=== PATIENT | female | born 1980 | race Caucasian/White ===

== ENCOUNTER 2017-07-04 14:22 | Emergency (ER) | payer SELFPAY ==
[~2017-07-04] VITALS: Ht 177.8 cm; Wt 113.4 kg
[~2017-07-04 14:22] MED LIST: BACTRIM DS 8001 TA1 PO; CARBAMAZEPINE400 MG PO; CIPRO 500MG TA500 MG PO; DOXYCYCLINE HY100 M3 PO; EFFEXOR XR150 MG PO; FUROSEMIDE40 MG PO; GABAPENTIN300 M1 PO; INDOCIN25 MG PO; KEFLEX500 M1 PO; LEVOTHYROXIN0.075 MG PO; MELOXICAM15 MG PO; PERCOCET 5/3251 EACH PO; PROZAC20 MG PO; PYRIDIUM 200MG200 MG PO; SMZ-TMP 800 MG-1 TAB PO; TESSALON PERLE100 MG PO; VENLAFAXINE HCL75 M1 PO; VIBRAMYCIN 100100 MG PO; VOLTAREN75 MG PO
--- OUTSIDE RECORDS SUMMARY | 2017-07-04 14:36 | External Medical Summary Rpt | CCD ---
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 0.0-0.6 complet Granulo 017 ed cytes 07:08 NFr Bld Basophi 0.1 % 0.0-1.0 complet ls NFr 017 ed Bld 07:08 Auto Eosinop 1.1 % 0.0-3.0 complet hil NFr 017 ed Bld 07:08 Auto Monocyt 5.6 % 0.0-12. complet es NFr 017 0 ed Bld 07:08 Auto Lymphoc 31.8 % 24.0-44 complet ytes 017 .0 ed NFr Bld 07:08 Auto Neutrop 61.3 % 41.0-71 complet hils 017 .0 ed NFr Bld 07:08 Auto Platele 149 150-450 complet t # Bld 017 10*3/mm ed Auto 07:08 3 PMV Bld 10.1 fL 6.0-12. complet Auto 017 0 ed 07:08 RDW RBC 47.1 fl 37.0-54 complet Auto 017 .0 ed 07:08 RDW RBC 13.5 % 11.3-14 complet 017 .5 ed Auto-Rt 07:08 o MCHC 33.1 32.0-36 complet RBC 017 g/dL .0 ed Auto-mC 07:08 nc MCH RBC 31.9 pg 27.0-31 complet Qn 017 .0 ed Auto 07:08 MCV RBC 96.3 fL 80.0-99 complet Auto 017 .0 ed 07:08 Hct VFr 30.8 % 34.5-44 complet Bld 017 .0 ed Auto 07:08 Hgb 10.2 11.5-15 complet Bld-mCn 017 g/dL .5 ed c 07:08 RBC # 11-11-2 3.20 3.89-5. complet Bld 017 10*6/mm 14 ed Auto 07:08 3 WBC 11-11-2 8.08 3.50-10 complet nRBC 017 10*3/mm .80 ed cor # 07:08 3 Bld Drugs Ur Scn (11-10-2016 03:22) Comment: Cutoff For Drugs Screened: Comment: Comment: Amphetamines 500 ng/ml Comment: Barbiturates 200 ng/ml Comment: Benzodiazepines 150 ng/ml Comment: Cocaine 150 ng/ml Comment: Methadone 200 ng/ml Comment: Opiates 100 ng/ml Comment: Phencyclidine 25 ng/ml Comment: THC 50 ng/ml Comment: Methamphetamine 500 ng/ml Comment: Tricyclic Antidepressants 300 ng/ml Comment: Oxycodone 100 ng/ml Comment: Propoxyphene 300 ng/ml Comment: Buprenorphine 10 ng/ml Comment: Comment: The normal value for all drugs tested is negative. This report includes unconfirmed screening results, with the cutoff values listed, to be used for medical treatment purposes only. Unconfirmed results must not be used for non-medical purposes such Bupreno [id number] Negativ complet rphine 017 09 e ed SerPl-m 03:22 Negativ Cnc e SCT Propoxy [id number] Negativ complet ph Ur 017 09 e ed Ql 03:22 Negativ e SCT Oxycodo [id number] Negativ complet ne Ur 017 09 e ed Ql Scn 03:22 Negativ e SCT Barbitu [id number] Negativ complet rates 017 09 e ed Ur Ql 03:22 Negativ Scn e SCT Methado [id number] Negativ complet ne Ur 017 09 e ed Ql Scn 03:22 Negativ e SCT Tricycl 5958633 Negativ complet ics Ur 017 09 e ed Ql Scn 03:22 Negativ e SCT Benzodi 1837153 Negativ complet az Ur 017 09 e ed Ql Scn 03:22 Negativ e SCT Amphet+ [id number] Negativ complet Methamp 017 09 e ed het Ur 03:22 Negativ Ql e SCT Opiates 7268122 Negativ complet Ur Ql 017 09 e ed 03:22 Negativ e SCT Ampheta 4905922 Negativ complet mines 017 09 e ed Ur Ql 03:22 Negativ e SCT Cocaine 4929242 Negativ complet Ur Ql 017 09 e ed 03:22 Negativ e SCT PCP Ur 4168666 Negativ complet Ql Scn 017 09 e ed 03:22 Negativ e SCT Cannabi 2797738 Negativ complet noids 017 09 e ed SerPl 03:22 Negativ Ql e SCT CBC (hemogram) Bld Auto (11-09-2016 13:09) Platele 231 150-450 complet t # Bld 017 10*3/mm ed Auto 13:09 3 PMV Bld 10.9 fL 6.0-12. complet Auto 017 0 ed 13:09 RDW RBC 46.6 fl 37.0-54 complet Auto 017 .0 ed 13:09 RDW RBC 2 13.6 % 11.3-14 complet 017 .5 ed Auto-Rt 13:09 o MCHC 34.8 32.0-36 complet RBC 017 g/dL .0 ed Auto-mC 13:09 nc MCH RBC 2 33.1 pg 27.0-31 complet Qn 017 .0 ed Auto 13:09 MCV RBC 95.1 fL 80.0-99 complet Auto 017 .0 ed 13:09 Hct VFr 34.8 % 34.5-44 complet Bld 017 .0 ed Auto 13:09 Hgb 11-09-2 12.1 11.5-15 complet Bld-mCn 017 g/dL .5 ed c 13:09 RBC # 11-09-2 3.66 3.89-5. complet Bld 017 10*6/mm 14 ed Auto 13:09 3 WBC 11-09-2 7.69 3.50-10 complet nRBC 017 10*3/mm .80 ed cor # 13:09 3 Bld Hgb F Bld Ql Kleih Betke (11-04-2016 13:25) Hgb F [id number] NO complet Bld Ql 017 00 Not ed Kleih 13:25 detecte CELLS Betke d SCT SEEN CBC (hemogram) Bld Auto (11-04-2016 13:25) Platele 199 150-450 complet t # Bld 017 10*3/mm ed Auto 13:25 3 PMV Bld 9.9 fL 6.0-12. complet Auto 017 0 ed 13:25 RDW RBC 11-04-2 46.1 fl 37.0-54 complet Auto 017 .0 ed 13:25 RDW RBC 11-04-2 13.4 % 11.3-14 complet 017 .5 ed Auto-Rt 13:25 o MCHC 11-04-2 34.8 32.0-36 complet RBC 017 g/dL .0 ed Auto-mC 13:25 nc MCH RBC 11-04-2 33.0 pg 27.0-31 complet Qn 017 .0 ed Auto 13:25 MCV RBC 11-04-2 94.9 fL 80.0-99 complet Auto 017 .0 ed 13:25 Hct VFr 11-04-2 37.1 % 34.5-44 complet Bld 017 .0 ed Auto 13:25 Hgb 11-04-2 12.9 11.5-15 complet Bld-mCn 017 g/dL .5 ed c 13:25 RBC # 11-04-2 3.91 3.89-5. complet Bld 017 10*6/mm 14 ed Auto 13:25 3 WBC 11-04-2 8.47 3.50-10 complet nRBC 017 10*3/mm .80 ed cor # 13:25 3 Bld Glucose 1h p 50 g Glc PO SerPl-mCnc (09-16-2016 09:57) Glucose 118 65-199 complet 1h p 017 mg/dL ed 100 g 09:57 Glc PO SerPl-m Cnc CBC (hemogram) Bld Auto (09-16-2016 09:57) Platele 214 150-450 complet t # Bld 017 10*3/mm ed Auto 09:57 3 PMV Bld 2 9.9 fL 6.0-12. complet Auto 017 0 ed 09:57 RDW RBC 09-16-2 46.9 fl 37.0-54 complet Auto 017 .0 ed 09:57 RDW RBC 09-16-2 13.6 % 11.3-14 complet 017 .5 ed Auto-Rt 09:57 o MCHC 09-16-2 35.3 32.0-36 complet RBC 017 g/dL .0 ed Auto-mC 09:57 nc MCH RBC 2 33.2 pg 27.0-31 complet Qn 017 .0 ed Auto 09:57 MCV RBC 01-04-2 94.2 fL 80.0-99 complet Auto 017 .0 ed 09:57 Hct VFr 35.7 % 34.5-44 complet Bld 017 .0 ed Auto 09:57 Hgb 09-16-2 12.6 11.5-15 complet Bld-mCn 017 g/dL .5 ed c 09:57 RBC # 04-2 3.79 3.89-5. complet Bld 017 10*6/mm 14 ed Auto 09:57 3 WBC 2 7.57 3.50-10 complet nRBC 017 10*3/mm .80 ed cor # 09:57 3 Bld UA Dipstick Pnl Ur (06-26-2016 19:42) Comment: Urine microscopic not indicated. Urobili 0.2 0.2 complet nogen 016 E.U./dL E.U./dL ed Ur Ql 19:42 , 1.0 Strip E.U./dL Nitrite [id number] Negativ complet Ur Ql 016 09 e ed Strip 19:42 Negativ e SCT Leukocy 0368731 Negativ complet te 016 09 e ed esteras 19:42 Negativ e Ur Ql e SCT Strip.a uto Prot Ur 9201592 Negativ complet Ql 016 09 e ed Strip 19:42 Negativ e SCT Hgb Ur 5780023 Negativ complet Ql 016 09 e ed Strip.a 19:42 Negativ uto e SCT Bilirub 4837261 Negativ complet Ur Ql 016 09 e ed Strip 19:42 Negativ e SCT Ketones 2992378 Negativ complet Ur Ql 016 06 e ed Strip 19:42 Trace SCT Glucose 7679772 Negativ complet Ur 016 09 e ed Strip-m 19:42 Negativ Cnc e SCT Sp Gr 1.026 1.001-1 complet Ur 016 .030 ed Strip 19:42 pH Ur 5.5 5.0-8.0 complet Strip.a 016 ed uto 19:42 Clarity [id number] Clear complet Ur 016 01 ed 19:42 Clear SCT Color 14-2 1977649 Yellow, complet Ur 016 09 Straw ed 19:42 Yellow color SCT CHLAMYDIA AND GONORRHEA TESTING (08-28-2014 15:00) Chlamyd NEGATIV complet ia 014 E ed trachom 15:00 atis rRNA [Presen ce] in Unspeci fied specime n by Probe & target amplifi cation method Neisser NEGATIV complet ia 014 E ed gonorrh 15:00 oeae rRNA [Presen ce] in Unspeci fied specime n by Probe & target amplifi cation method CHLAMYDIA AND GONORRHEA TESTING (08-28-2014 15:00) COLLECT A. complet OR 014 SOFYA, ed 15:00 RN ETHNICI WHITE, complet TY 014 NON-HIS ed 15:00 PANIC KIT complet EXPIRAT 014 5 ed ION 15:00 DATE SYMPTOM NO complet S 014 ed 15:00 REASON REVISIT complet FOR 014 /ANNUAL ed REQUEST 15:00 FAMILY PLANNIN G VISIT SPECIME FEMALE complet N 014 ENDOCER ed SOURCE 15:00 VICAL PREGNAN NO complet T 014 ed 15:00 CHART 267-99- complet NUMBER 014 7513 ed 15:00 Chlamyd Pending complet ia 014 ed trachom 15:00 atis rRNA [Presen ce] in Unspeci fied specime n by Probe & target amplifi cation method Neisser Pending complet ia 014 ed gonorrh 15:00 oeae rRNA [Presen ce] in Unspeci fied specime n by Probe & target amplifi cation method CHLAMYDIA AND GONORRHEA TESTING (10-13-2011 11:33) Chlamyd NEGATIV complet ia 012 E ed trachom 11:33 atis rRNA [Presen ce] in Unspeci fied specime n by Probe & target amplifi cation method Neisser NEGATIV complet ia 012 E ed gonorrh 11:33 oeae rRNA [Presen ce] in Unspeci fied specime n by Probe & target amplifi cation method CHLAMYDIA AND GONORRHEA TESTING (10-13-2011 11:33) COLLECT NA complet OR 012 ed 11:33 ETHNICI WHITE, complet TY 012 NON-HIS ed 11:33 PANIC KIT complet EXPIRAT 012 2 ed ION 11:33 DATE SYMPTOM NO complet S 012 ed 11:33 REASON REVISIT complet FOR 012 /ANNUAL ed REQUEST 11:33 FAMILY PLANNIN G VISIT SPECIME URINE complet N 012 ed SOURCE 11:33 PREGNAN NO complet T 012 ed 11:33 CHART NA complet NUMBER 012 ed 11:33 Chlamyd Pending complet ia 012 ed trachom 11:33 atis rRNA [Presen ce] in Unspeci fied specime n by Probe & target amplifi cation method Neisser Pending complet ia 012 ed gonorrh 11:33 oeae rRNA [Presen ce] in Unspeci fied specime n by Probe & target amplifi cation method Procedures Procedure DOS Code Location Performer Comment IADNA [facility] 7 [facility] DEPT HLTH DEPT GONORRHOE ADALBERTO ADALBERTO AE AMPLIFIED PROBE TQ IADNA 70134 [facility] CHLAMYDIA 7 [facility] DEPT HLTH DEPT TRACHOMAT ADALBERTO ADALBERTO IS AMPLIFIED PROBE TQ URINE 37568 [facility] 7 [facility] TEST TH DEPT HLTH DEPT VISUAL ADALBERTO ADALBERTO COLOR CMPRSN METHS BREAST E0603 [facility] PUMP 7 INC INC ELECTRIC ANY TYPE NEURAXIAL 68907 [facility] WHITE III LABOR 7 ANESTHESI ANALG/ANE A PSC S PLND VAGINAL DELIVERY 80587 [facility] NONSTRESS 7 [facility]OMENS TEST [facility] OBSERVATI 17178 [facility] ON CARE 7 WOMENS DISCHARGE [facility] [place] [address] [facility] BIOPHYSIC 7 HEALTH AL MEDICAL PROFILE GROUP W/O NON-STRES S TESTING IADNA 43209 MEDICAL MEDICAL STREPTOCO 7 DIAGNOSTI DIAGNOSTI CCUS [facility] C LAB LLC GROUP B AMPLIFIED PROBE TQ HGB/RBCS 98139 [facility] ANABAPTISM 7 [facility] NAL HEMRRG DIFRNTL LYSIS INITIAL 32173 [facility] OBSERVATI 7 [facility] ON [facility] CARE/DAY PLLC 50 MINUTES HOSPITAL G0378 [facility] OBSERVATI 7 HEALTH HEALTH ON [facility] SERVICE PER HOUR BLOOD 27547 [facility] TYPING 7 HEALTH HEALTH SEROLOGIC [facility] RH (D) ANTIBODY 76983 [facility] SCREEN 7 HEALTH HEALTH RBC EACH [facility] SERUM TECHNIQUE BLOOD 91032 [facility] TYPING 7 HEALTH HEALTH SEROLOGIC [facility] ABO 75860 [facility] NONSTRESS 7 [facility] US PREG 70046 [facility] HIETT UTERUS 7 HEALTH REAL TIME MEDICAL F/U GROUP TRNSABDL PER FETUS 98830 [facility] NONSTRESS 7 [facility] 81013 [facility] NONSTRESS 7 [facility] US PREG 78778 [facility] UTERUS 7 WOMENS REAL TIME HEALTH F/U PLLC TRNSABDL PER FETUS ANTIBODY 23368 [facility] SCREEN 7 HEALTH HEALTH RBC EACH [facility] SERUM TECHNIQUE COLLECTIO 72512 [facility] N VENOUS 7 HEALTH HEALTH BLOOD [facility] VENIPUNCT URE GLUCOSE 72061 [facility] POST 7 HEALTH HEALTH GLUCOSE [facility] DOSE US PREG 34595 [facility] UTERUS 6 HEALTH HEALTH REAL TIME [facility] F/U TRNSABDL PER FETUS US PREG 36205 [facility] HIETT UTERUS 6 HEALTH W/DETAIL MEDICAL GROUP SAVANAH 1ST GESTATION INITIAL 16368 [facility] HIGH JR OBSERVATI 6 HEALTH CUR ON MEDICAL CARE/DAY GROUP 30 MINUTES URNLS DIP 01998 [facility] 6 [facility] STICK/TAB INTERNAL LET RGNT MED NON-[place] W/[place] [address] [facility] JEANETTE [address] [facility] UTERUS 14 MEDICAL WK GROUP TRANSABDL GESTAT CYTP C/V 93861 [facility], PICKLESIM AUTO THIN 6 LLC ER JR MANUEL LYR PREPJ SCR MNL RESCR PHYS US PREG 02216 [facility] BRAULIO UTERUS [address] [facility] BAR REAL TIME MEDICAL W/[place] [address] [facility] HEPATITIS 6 [facility] B [facility] SURFACE ANTIGEN IADNA 01110 MEDICAL MEDICAL MATTHEW 6 DIAGNOSTI DIAGNOSTI SPECIES [facility] C LAB LLC AMPLIFIED PROBE TQ IADNA 97875 MEDICAL MEDICAL GARDNEREL 6 DIAGNOSTI DIAGNOSTI LA C LAB LLC C LAB LLC VAGINALIS AMPLIFIED PROBE TQ HEMOGLOBI 92734 [facility] ANAB[facility]ISM N [address] [facility] HEALTH GLYCOSYLA [facility] JOSE MANUEL A1C BLOOD 80141 [facility] COUNT 6 [facility] COMPLETE [facility] AUTO&AUTO DIFRNTL WBC IADNA 92906 MEDICAL MEDICAL TRICHOMON 6 DIAGNOSTI DIAGNOSTI C LAB LLC C LAB LLC VAGINALIS AMPLIFIED PROBE TECH ANTIBODY 71174 [facility] RUBELLA [address] [facility] HEALTH [facility] URNLS DIP 39333 [facility] ANABAPTISM 6 [facility] STICK/TAB [facility] LET RGNT AUTO W/O MICROSCOP Y COLLECTIO 64968 [facility] A[facility]ISM N VENOUS 6 [facility] BLOOD [facility] VENIPUNCT URE IADNA NOS 23363 MEDICAL MEDICAL 6 DIAGNOSTI DIAGNOSTI AMPLIFIED [facility] LAB [facility] PROBE TQ EACH ORGANISM SYPHILIS 29657 [facility] TEST [address] [place] [address] NON-TREPO [facility] NEMAL ANTIBODY QUAL IADNA 07980 MEDICAL MEDICAL NEISSERIA 6 DIAGNOSTI DIAGNOSTI C [facility] C LAB LLC GONORRHOE AE AMPLIFIED PROBE TQ COMPREHEN 42718 [facility] A[facility] SIVE 6 [facility] METABOLIC [facility] PANEL DRUG TEST G0478 [facility] ANABAPTISM [address] [place] [address] PRESUMP;R [facility] EAD BY [place]STRUM[place] [address] [facility] THYROID [address] [place] [address] STIMULATI [facility] NG HORMONE TSH IADNA 39886 MEDICAL MEDICAL CHLAMYDIA 6 DIAGNOSTI DIAGNOSTI C LAB LLC C LAB LLC TRACHOMAT IS AMPLIFIED PROBE TQ IADNA 78764 [facility], PICKLESAragon Surgical HUMAN 6 LLC ER JR MANUEL PAPILLOMA VIRUS HIGH-RISK TYPES INF AGT G0432 [facility] [address] [place] [address] EIA TECH [facility] HIV-1&/HI V-2 SCR DRUG TEST G0480 [facility] [address] [place] [address] DR ID [facility] METH P DAY 1-[place] [address] MICHELE BAUTISTA THYROID 6 [facility] STIMULATI INC INC NG HORMONE TSH COMPREHEN 67660 MICHELE BAUTISTA SIVE 6 [facility] METABOLIC INC INC PANEL COLLECTIO 84131 MICHELE BAUTISTA N VENOUS 6 [facility] BLOOD INC INC VENIPUNCT URE BLOOD 79931 MICHELE BAUTISTA COUNT 6 [facility] COMPLETE INC INC AUTO&AUTO DIFRNTL WBC URINE 73723 [facility]TH DEPT HLTH DEPT VISUAL ADALBERTO [place] [address] LAB [facility] PROGESTER 6 [facility]INGS HOLDINGS COMPREHEN 95639 MICHELE BAUTISTA SIVE 6 [facility] METABOLIC INC INC PANEL UNCLASSIF J3490 MICHELE BAUTISTA IED DRUGS 6 [facility] INC INC CULTURE 98045 MICHELE BAUTISTA BCT 6 [facility] ISOL&PRSM INC INC PTV ID ISOLATE EA URINE CULTURE 18250 MICHELE BAUTISTA BACTERIAL 6 [facility] INC [place] [address] MICHELE BAUTISTA ABDOMEN & 6 [facility] PELVIS INC INC W/O CONTRAST MATERIAL BLOOD 61418 MICHELE BAUTISTA COUNT 6 [facility] COMPLETE INC INC AUTO&AUTO DIFRNTL WBC SUSCEPTIB 98826 MICHELE BAUTISTA LTY STDY 6 [facility] ANTIMICRB INC INC IAL MICRO/AGA R DILUTJ URNLS DIP 30588 MICHELE BAUTISTA 6 [facility] STICK/TAB INC INC LET REAGENT AUTO MICROSCOP Y GONADOTRO 11397 MICHELE BAUTISTA PIN 6 [facility] CHORIONIC INC INC QUALITATI VE THER 43596 MICHELE BAUTISTA PROPH/DX 6 [facility] NJX IV INC INC PUSH SINGLE/1S T SBST/DRUG URINE 82747 MICHELE BAUTISTA 6 [facility] TEST INC INC VISUAL COLOR CMPRSN METHS CYTP 02948 [facility] CERVICAL/ 6 LLC MELISSA VAGINAL REQ INTERP PHYSICIAN IADNA 47337 [facility] HUMAN 6 LLC MELISSA PAPILLOMA VIRUS HIGH-RISK TYPES CYTP 75773 [facility] CERV/VAG 6 LLC MELISSA AUTO THIN LAYER PREP MNL SCREEN UNCLASSIF J3490 MICHELE BAUTISTA IED DRUGS 5 [facility] INC INC RADIOLOGI 62607 MICHELE BAUTISTA C 5 [facility] EXAMINATI INC INC ON CHEST SINGLE VIEW FRONTAL INCISION 08717 MICHELE BAUTISTA & 5 [facility] DRAINAGE INC INC ABSCESS COMPLICAT ED/MULTIP LE RADIOLOGI 69068 MICHELE BAUTISTA C EXAM 5 [facility] CHEST 2 INC INC VIEWS FRONTAL&L ATERAL COLPOSCOP 43266 YESI ELSA YESI ELSA Y CERVIX 5 [facility] NT VAGINA W/[place] [address] [facility], CORY PAT SURG 5 LLC PATHOLOGY GROSS&[place] [address] [facility], WOO SURG 5 LLC MELISSA PATHOLOGY GROSS&MARCELLO ROSCOPIC EXAM ENDOCERVI 56145 YESI ELSA YESI ELSA RHONA 5 CURETTAGE W/DILATIO N & CURETTAGE CYTP C/V 50842 [facility], WOO AUTO THIN 5 LLC MELISSA LYR PREPJ SCR MNL RESCR PHYS CYTP 50799 [facility], WOO CERVICAL/ 5 LLC MELISSA VAGINAL REQ INTERP PHYSICIAN CONTRACEP J7303 [facility] T SUPPLY [address] [facility] HL[facility] DEPT HLTH DEPT CONTAININ ADALBERTO ADALBERTO G VAG RING EA THERAPEUT 84894 MICHELE BAUTISTA IC 5 [facility] INJECTION INC INC IV PUSH EACH NEW DRUG CULTURE 46981 COMBINED COMBINED BACTERIAL 5 PHYSICIAN PHYSICIAN S LA Yoni LA QU[place]TTAT[place] [address] [facility], BEATRICE SURG 5 [facility] PATHOLOGY GROSS&MARCELLO ROSCOPIC EXAM [place] V 91023 [facility], BEATRICE SURG 5 [facility] PATHOLOGY GROSS&MARCELLO ROSCOPIC EXAM COLPOSCOP 47667 YESI ELSA YESI ELSA Y CERVIX 5 VAG ELTRD CONIZATIO N CERVIX US SOFT 34896 MICHELE BAUTISTA TISSUE 5 [facility] HEAD & INC [place] [address] [place] HEAD/BRAI 5 MEDICAL GAVINO N W/O IMAGING CONTRAST ASS MATERIAL COMPREHEN 49317 MICHELE BAUTISTA SIVE 5 [facility] METABOLIC INC INC PANEL DRUG 19322 MICHELE BAUTISTA ASSAY 5 [facility] CARBAMAZE INC INC PINE TOTAL BLOOD 73247 MICHELE BAUTISTA COUNT 5 [facility] COMPLETE INC INC AUTO&AUTO DIFRNTL WBC URNLS DIP 23562 MICHELE BAUTISTA 5 [facility] STICK/TAB INC INC LET REAGENT AUTO MICROSCOP Y URINE 21908 MICHELE BAUTISTA 5 [facility] TEST INC INC VISUAL COLOR CMPRSN METHS DRUG 61798 MICHELE BAUTISTA ASSAY 5 [facility] CARBAMAZE INC INC PINE TOTAL BLOOD 33225 MICHELE KELLEYON COUNT 5 [facility] COMPLETE INC INC AUTO&[place] [address] MIC[facility] THYROID 5 [facility] STIMULATI INC INC NG HORMONE TSH COLLECTIO 35190 MICHELE BAUTISTA N VENOUS 5 [facility] BLOOD INC INC VENIPUNCT URE COMPREHEN 98434 MICHELE BAUTISTA SIVE 5 [facility] [place] [address] P&C LABSCORY PAT SURG 5 LLC PATHOLOGY GROSS&MARCELLO ROSCOPIC EXAM COLPOSCOP 97316 YESI ELSA YESI ELSA Y CERVIX 5 UPPR/ADJC NT VAGINA W/CERVIX BX IADNA 59875 [facility] GONORRHOE ADALBERTO ADALBERTO AE AMPLIFIED PROBE TQ CYTP 22815 P&[facility] LABSTITUS CERV/VAG 4 LLC AUTO THIN LAYER PREP MNL SCREEN IADNA 57392 [facility] CHLAMYDIA [address] [facility] DE[facility] TRACHOMAT ADALBERTO ADALBERTO IS AMPLIFIED PROBE TQ IADNA 48137 P&[facility] LABSTITUS PAPILLOMA 4 LLC VIRUS HUMAN AMPLIFIED PROBE TQ CYTP 78129 P&[facility] LABSTITUS CERVICAL/ 4 LLC VAGINAL REQ INTERP PHYSICIAN CONTRACEP J7303 [facility] T SUPPLY 4 [facility] DE[facility] CONTAININ ADALBERTO ADALBERTO G VAG RING EA URINE [address] [facility] [address] [facility] TEST [facility] VISUAL ADALBERTO ADALBERTO COLOR CMPRSN METHS CONTRACEP A4267 [facility] TIVE [facility] CONDOM ADALBERTO ADALBERTO MALE EACH CONTRACEP S4993 [facility] TIVE [address] [facility] ADALBERTO ADALBERTO CONTROL CONTRACEP J7303 [facility] T SUPPLY [address] [facility] DEPT CONTAININ ADALBERTO ADALBERTO G VAG RING EA GROUND A0425 [facility] MILEAGE 4 AMBULANCE AMBULANCE PER SERVICE SERVICE STATUTE MILE AMBULANCE A0429 [facility] SERVICE 4 AMBULANCE AMBULANCE BLS SERVICE SERVICE EMERGENCY TRANSPORT BLOOD 34827 MIC[facility]LE MICHELE COUNT 4 [facility] COMPLETE INC INC AUTO&[place] [address] MICHELE BAUTISTA MAXILLOFA 4 [facility] CIAL W/O INC INC CONTRAST MATERIAL COMPREHEN 60392 MICHELE BAUTISTA SIVE 4 [facility] METABOLIC INC INC PANEL RADEX 86087 MICHELE BAUTISTA ELBOW 4 [facility] COMPLETE INC INC MINIMUM 3 VIEWS GONADOTRO 75370 MICHELE BAUTISTA PIN 4 [facility] CHORIONIC INC INC QUALITATI VE RADEX 67858 MICHELE BAUTISTA ELBOW 4 [facility] COMPLETE INC INC MINIMUM [address] UPPER 57617 MICHELE BAUTISTA EXTREMITY 4 [facility] W/O INC INC CONTRAST MATERIAL MRI ANY 43510 DELROY DELROY JT UPPER 4 GAVINO GAVINO EXTREMITY W/[place] [address] PETTEY PETTEY RADIAL 4 JAM JAM HEAD/NECK FX W/O MANIPULAT ION RADEX 66801 MICHELE BAUTISTA ELBOW 4 [facility] COMPLETE INC INC MINIMUM 3 VIEWS RADEX 15217 MICHELE BAUTISTA HAND 4 [facility] MINIMUM 3 INC INC VIEWS RADEX 30621 MICHELE BAUTISTA HUMERUS 4 [facility] MINIMUM 2 INC INC VIEWS RADEX 71877 MICHELE BAUTISTA FOREARM 2 4 [facility] VIEWS INC INC INJECTION J3301 VINCE SPIVEYSON 4 RADHA RADHA TRIAMCINO LONE ACETONIDE NOS 10 MG THERAPEUT 35805 VINCE CLARKE IC 4 RADHA RADHA PROPHYLAC TIC/DX INJECTION SUBQ/IM URINE 55876 MICHELE BAUTISTA 4 [facility] TEST INC INC VISUAL COLOR CMPRSN METHS COMPREHEN 05962 MICHELE BAUTISTA SIVE 4 [facility] METABOLIC INC INC PANEL CULTURE 69106 MICHELE BAUTISTA BACTERIAL 4 [facility] INC [place] [address] DELROY DELROY ABDOMEN & 4 GAVINO GAVINO PELVIS W/O CONTRAST MATERIAL BLOOD 50163 MICHELE BAUTISTA COUNT 4 [facility] COMPLETE INC INC AUTO&AUTO DIFRNTL WBC URNLS DIP 34117 MICHELE MICHELE 4 [facility] STICK/TAB INC INC LET REAGENT AUTO MICROSCOP Y CULTURE 49346 COMBINED COMBINED BACTERIAL 4 PHYSICIAN PHYSICIAN Yoni UREÑA QUANTTATI VE COLONY COUNT URINE URNLS DIP 94160 LUNA LUNA 4 MOSHE MOSHE STICK/TAB LET RGNT NON-AUTO W/O MICRSCP COMPREHEN 71962 MICHELE BAUTISTA SIVE 4 [facility] [place] [address] MICHELE BAUTISTA THYROID 4 [facility] STIMULATI INC INC NG HORMONE TSH DRUG 87058 MICHELE BAUTISTA ASSAY 4 [facility] CARBAMAZE INC INC PINE TOTAL BLOOD 23479 MICHELE BAUTISTA COUNT 4 [facility] COMPLETE INC INC AUTO&AUTO DIFRNTL WBC LEVONORGE J7302 [facility] NUR, STREL-RLS 0 [facility] E [facility]IN[facility] OF INTRAUTER N [place] CNTRACPT PLLC 52 MG URINE 72246 W[facility]S NUR, 0 [facility] J TEST CLINIC OF VISUAL COLOR [place] CMPRSN PLLC METHS INSERTION 37505 WOMEN'S NUR, 0 [facility] J INTRAUTER CLINIC OF INE DEVICE [place] IUD PLLC CYTP C/V 42431 PATHOLOGY PATHOLOGY AUTO THIN 0 & & LYR CYTOLOGY CYTOLOGY PREPJ SCR LAB LAB MNL RESCR [facility] [address] [facility] NOREEN ADLER JR INTERNAL SMITH Landa [facility] MED T 30 MIN/< ADMINISTR 9948 MICHELE BAUTISTA ATION OF 0 [facility] MEASLES-M INC INC UMPS-RUBE LLA VACCINE SBSQ 81404 [facility] 0 PHYSICIAN RADHA CARE/DAY GROUP 35 PCC MINUTES SUBQ 09196 [facility] 0 VITOR BERN[place], CARE PER INTERNAL SMITH Landa DAY E/M MED NORMAL 1ST 27118 [facility]/BREE 0 MAYUR ADLER JR INTERNAL [facility] MED CARE PER DAY NML NB OTHER 7359 MICHELE BAUTISTA MANUALLY 0 [facility] ASSISTED INC INC DELIVERY NEURAXIAL 33298 [facility]ORT[facility], LABOR 0 ANESTH AARON L ANALG/ANE OF THE S PLND [place] VAGINAL DELIVERY VAGINAL 02159 [facility] DELIVERY 0 PHYSICIAN RADHA ONLY GROUP PCC IADNA 48695 Rachel ALVARADO, Rachel STREPTOCO 0 JENNY Gomez CCUS PSC GROUP A QUANTIFIC ATION 04903 MICHELE BAUTISTA NONSTRESS 0 [facility] TEST INC INC HOSPITAL G0378 MICHELE BAUTISTA OBSERVATI 0 [facility] ON INC INC SERVICE PER HOUR OBSERVATI 58235 [facility], ON CARE 0 [facility] DISCHARGE CLINIC OF [facility] JUDY Fish [facility] 05543 WOMEN'S NUR OBSERVATI 0 [facility] ON CLINIC OF CARE/DAY 50 [place] MINUTES [facility] DOPPLER 71069 MICHELE BAUTISTA VELOCIMET 0 [facility] RY INC INC UMBILICAL ARTERY 54899 MICHELE BAUTISTA BIOPHYSIC 0 [facility] AL INC INC PROFILE W/O NON-STRES S TESTING 97562 MICHELE BAUTISTA NONSTRESS 0 [facility] TEST INC INC CULTURE 02069 COMBINED COMBINED BACTERIAL 0 PHYSICIAN PHYSICIAN S LAB S LAB QUANTTATI VE COLONY COUNT URINE CUL BACT 34480 COMBINED COMBINED XCPT 0 PHYSICIAN PHYSICIAN URINE S LAB S LAB BLOOD/STO OL AEROBIC ISOL OBSERVATI 02392 [facility]EN[facility]S [facility], ON CARE 0 [facility] JUDY Fish [facility] H[facility]PITAL G0378 MICHELE BAUTISTA OBSERVATI 0 [facility] ON INC INC SERVICE PER HOUR THERAPEUT 04300 MICHELE BAUTISTA IC 0 [facility] PROPHYLAC INC INC TIC/DX INJECTION SUBQ/IM THERAPEUT 47912 MICHELE BAUTISTA IC 0 [facility] PROPHYLAC INC INC TIC/DX INJECTION SUBQ/IM 89882 MICHELE BAUTISTA NONSTRESS 0 [facility] TEST INC INC HOSPITAL G0378 MICHELE BAUTISTA OBSERVATI 0 [facility] [place] [address] MICHELE BAUTISTA INFUSION 0 [facility] HYDRATION INC INC INITIAL 31 MIN-1 HOUR CULTURE 86275 MICHELE BAUTISTA BACTERIAL 0 [facility] INC INC QUANTTATI VE COLONY COUNT URINE INITIAL 60787 [facility] OBSERVATI 0 PHYSICIAN RADHA ON GROUP CARE/DAY PCC 70 MINUTES BLOOD 09798 MICHELE BAUTISTA COUNT 0 [facility] COMPLETE INC INC AUTO&AUTO DIFRNTL WBC FTL 48297 MICHELE BAUTISTA FIBRONECT 0 [facility] IN INC INC CERVICOVA G SECRETION S SEMI-PAMELA URNLS DIP 84706 MICHELE BAUTISTA 0 [facility] STICK/TAB INC INC LET REAGENT AUTO MICROSCOP Y INITIAL 13313 WOMEN'S NUR, OBSERVATI 0 [facility]ALTH AY[facility] J ON CLINIC OF CARE/DAY 30 [place] MINUTES [facility] BLOOD 73765 MICHELE BAUTISTA COUNT 0 [facility] COMPLETE INC INC AUTO&AUTO [place]IFRNTL WBC US PREG 27167 WOMEN'S NUR, UTERUS 0 HEALTH AYAH J REAL TIME CLINIC OF F/U TRNSABDL [place] PER FETUS [facility] 28894 WOMEN'S NUR, BIOPHYSIC 0 HEALTH AYAH J AL CLINIC OF PROFILE W/O [place] NON-STRES [facility] S TESTING DOPPLER 62120 WOMEN'S NUR, VELOCIMET 0 HEALTH AYAH J RY CLINIC OF UMBILICAL ARTERY [place] [facility] [address] MICHELE BAUTISTA ESTRIOL 9 [facility] INC INC ALPHA-FET 94450 MICHELE BAUTISTA OPROTEIN 9 [facility] SERUM INC INC GONADOTRO 40678 MICHELE BAUTISTA PIN 9 [facility] CHORIONIC INC INC QUANTITAT RICHARD US PREG 72268 WOMEN'S NUR, UTERUS 9 HEALTH AYAH J REAL TIME CLINIC OF W/IMAGE DCMTN [place] TRAN[facility] PLL[facility] CYTP C/V 37249 PATHOLOGY PATHOLOGY AUTO THIN 9 & & LYR CYTOLOGY CYTOLOGY PREPJ SCR LAB LAB MNL RESCR PHYS IADNA 12763 PATHOLOGY PATHOLOGY NEISSERIA 9 & & CYTOLOGY CYTOLOGY GONORRHOE LAB LAB AE AMPLIFIED PROBE TQ IADNA 96597 PATHOLOGY PATHOLOGY CHLAMYDIA 9 & & CYTOLOGY CYTOLOGY TRACHOMAT LAB LAB IS AMPLIFIED PROBE TQ Encounters Encounter Start End Date Code Location Performer Type Date OFFICE 58269 [facility] 7 7 [facility] T VISIT INTERNAL 15 MED MINUTES OFFICE 11583 [facility] OUT[facility] 7 7 MEDICINE T NEW 30 OF MINUTES [facility] PER[facility]ODIC 92595 [facility] MED EST HLTH DEPT HLTH DEPT PATIENT ADALBERTO ADALBERTO 18-39 YRS OFFICE 45480 [facility] 7 7 VALLEY T VISIT INTERNAL 25 MED MINUTES OFFICE 61060 [facility] [place] OUTPATIEN 7 7 HEALTH T VISIT MEDICAL 15 GROUP [facility] ANABAPTISM - 7 7 HEALTH INPATIENT [facility] ANABAPTISM - 7 7 HEALTH OUTPATIEN [facility] ANABAPTISM - 7 7 HEALTH OUTPATIEN [facility] OFFICE 78637 [place] [facility] OUT[facility] 7 7 WOMENS T VISIT HEALTH 15 PLLC MINUTES OFFICE 97200 [place] OUTPATIEN 7 7 WOMENS T VISIT HEALTH 15 PLLC MINUTES OFFICE 18037 [facility] RUDD OUTPATIEN 7 7 VALLEY T VISIT INTERNAL 15 MED MINUTES OFFICE 23338 [place] OUTPATIEN 7 7 WOMENS T VISIT HEALTH 15 PLLC MINUTES [facility] ANABAPTISM - 7 7 HEALTH OUTPATIEN [facility] OFFICE 25581 [place] [facility] OUTPATIEN 7 7 WOMENS T VISIT HEALTH 15 PLLC MINUTES HOSPITAL ANA[facility]APT[facility] - 6 6 HEALTH OUTPATIEN [facility]ICE 06718 [facility] 6 6 WOMENS T VISIT HEALTH 15 PLLC MINUTES OFFICE 36966 ANA[facility]APTISM KAYY CONSULTAT 6 6 HEALTH ION MEDICAL NEW/ESTAB GROUP PATIENT 15 MIN OFFICE 65080 ANABAPTISM BRAULIO OUTPATIEN 6 6 HEALTH BAR T VISIT MEDICAL 15 GROUP MINUTES HOSPITAL ANABAPTISM - 6 6 HEALTH OUTPATIEN [facility] OFFICE 45009 [facility]ISM BRAULIO OUTPATIEN 6 6 HEALTH BAR T VISIT MEDICAL 15 GROUP MINUTES OFFICE 20393 L[facility] VINCE OUTPATIEN 6 6 [facility] T VISIT INTERNAL 15 MED MINUTES OFFICE 96280 A[facility]APTISM BRAULIO OUTPATIEN 6 6 HEALTH BAR T VISIT MEDICAL 15 GROUP MINUTES OFFICE 20748 ANABAPTISM JEANETTE CONSULTAT 6 6 HEALTH ION MEDICAL NEW/ESTAB GROUP PATIENT 30 MIN HOSPITAL ANABAPTISM - 6 6 HEALTH OUTPATIEN [facility] ANABAPTISM - 6 6 HEALTH OUTPATIEN [facility] OFFICE 68984 ANABAPTISM BRAULIO OUTPATIEN 6 6 HEALTH BAR T NEW 45 MEDICAL MINUTES GROUP HOSPITAL MICHELE - 6 6 [facility] OUTPATIEN [facility] T OFFICE 73328 [facility] 6 6 [facility] T VISIT [facility] DE[facility] TH DEPT 10 ADALBERTO ADALBERTO MINUTES OFFICE 50812 VANESA HUNTER OUTPATIEN 6 6 YESI HATCH T VISIT 15 MINUTES OFFICE 25621 VANESA HUNTER OUTPATIEN 6 6 YESI HATCH T VISIT 15 MINUTES OFFICE 54422 [facility] 6 6 [facility] T VISIT INTERNAL 15 MED MINUTES OFFICE 79912 [facility] 6 6 [facility] T VISIT INTERNAL 25 MED MINUTES OFFICE 19234 VANESA HUNTER OUTPATIEN 6 6 YESI HATCH T VISIT 15 MINUTES HOSPITAL MICHELE - 6 6 [facility] OUTPATIEN INC T EMERGENCY 23713 MICHELE 6 6 [facility] DEPARTMEN INC T VISIT LOW/MODER SEVERITY EMERGENCY 54089 [facility]FFERY [facility] 6 6 PHYSICIAN DEPARTMEN S, [facility] T VISIT HIGH/URGE NT SEVERITY OFFICE 93200 [facility] 5 5 [facility] T VISIT INTERNAL 15 MED MINUTES EMERGENCY 56116 [facility] 5 [facility] T VISIT HIGH/URGE NT SEVERITY HOSPITAL MICHELE - 5 5 [facility] OUTPATIEN INC T EMERGENCY 14754 MICHELE 5 5 [facility] DEPARTMEN INC T VISIT MODERATE SEVERITY EMERGENCY 59288 MICHELE 5 5 [facility] DEPARTMEN INC T VISIT LOW/MODER SEVERITY HOSPITAL MICHELE - 5 5 [facility] OUTPATIEN INC T OFFICE 40015 [facility] 5 5 [facility] T VISIT INTERNAL 15 MED MINUTES OFFICE 20025 YEIS ELSA YESI ELSA OUTPATIEN 5 5 T VISIT 15 MINUTES OFFICE 07494 YESI ELSA YESI ELSA OUTPATIEN 5 5 T VISIT 15 MINUTES OFFICE 29454 [facility] [address] [facility] T VISIT [facility] DE[facility] 10 ADALBERTO ADALBERTO MINUTES EMERGENCY 37007 MICHELE RYDER 5 5 [facility] T VISIT P MODERATE SEVERITY HOSPITAL MIC[facility]LE - 5 5 [facility] OUTPATIEN INC T OFFICE 26686 [facility] VINCE [facility]PATIEN 5 5 [facility] T VISIT INTERNAL 15 MED MINUTES HOSPITAL MICHELE - 5 5 [facility] OUTPATIEN INC T EMERGENCY 32331 MICHELE JANI 5 5 [facility] T VISIT P MODERATE SEVERITY HOSPITAL MIC[facility]LE - 5 5 [facility] OUTPATIEN INC [facility]OSPITAL MIC[facility]LE - 5 5 [facility] OUTPATIEN [facility] OFFICE 81256 YESI ELSA YESI ELSA OUTPATIEN 5 5 T VISIT 15 MINUTES OFFICE 75693 YESI ELSA YESI ELSA CONSULTAT 5 5 ION NEW/ESTAB PATIENT 40 MIN PERIODIC 98973 [facility] [address] [facility] E MED EST HLTH DEPT HL DEPT PATIENT ADALBERTO ADALBERTO 18-39 YRS OFFICE 34572 [facility] [address] [facility] T VISIT HLTH DEPT TH DEPT 15 ADALBERTO ADALBRETO MINUTES OFFICE 10416 [facility] [address] [facility] T VISIT TH DEPT TH DEPT 15 ADALBERTO ADALBERTO MINUTES EMERGENCY 65504 BRITNI RYDER 4 4 [facility] T VISIT HIGH/URGE NT SEVERITY HOSPITAL MIC[facility]LE - 4 4 [facility] OUTPATIEN [facility] T EMERGENCY 39223 MICHELE 4 4 [facility] T VISIT LOW/MODER SEVERITY HOSPITAL MICHELE - 4 4 [facility] OUTPATIEN INC [facility] - 4 4 [facility] OUTPATIEN [facility] MIC[facility]LE - 4 4 [facility] OUTPATIEN [facility] T EMERGENCY 93573 [facility] 4 4 MARCELLO MARCELLO DEPARTMEN T VISIT HIGH/URGE NT SEVERITY EMERGENCY 99883 MICHELE 4 4 [facility] DEPARTMEN INC T VISIT LOW/MODER SEVERITY OFFICE 58473 VINCE CLARKE OUTPATIEN 4 4 RADHA RADHA T VISIT 25 MINUTES EMERGENCY 50531 BRITNI BRITNI DEPT 4 4 [facility] MARCELL[facility] VISIT HIGH SEVERITY& THREAT FUNCJ EMERGENCY 94377 MICHELE 4 4 [facility] DEPARTMEN INC T VISIT LOW/MODER SEVERITY HOSPITAL MIC[facility]LE - 4 4 [facility] OUTPATIEN INC T OFFICE 51916 [facility] 4 [facility] T VISIT 10 MINUTES HOSPITAL MICHELE - 4 4 [facility] OUTPATIEN INC T OFFICE 13702 WOMEN'S NUR, OUTPATIEN 0 0 HEALTH AYAH J T VISIT CLINIC OF 25 MINUTES [facility] OFFICE 98066 WOMEN'S NUR, OUTPATIEN 0 0 HEALTH AYAH J T VISIT CLINIC OF 15 MINUTES [facility] MICHELE - 0 0 [facility] INPATIENT INC OFFICE 64255 Rachel ODELL OUTPATIEN 0 0 JENNY Gomez T VISIT PSC 15 MINUTES OFFICE 54368 WOMEN'S NUR, OUTPATIEN 0 0 HEALTH AYAH J T VISIT CLINIC OF 15 MINUTES [facility] MICHELE - 0 0 [facility] OUTPATIEN [facility] T OFFICE 86843 WOMEN'S NUR, OUTPATIEN 0 0 HEALTH AYAH J T VISIT CLINIC OF 15 MINUTES [facility] MICHELE - 0 0 [facility] OUTPATIEN [facility] MICHELE - 0 0 [facility] OUTPATIEN INC T OFFICE 51060 WOMEN'S NUR, OUTPATIEN 0 0 HEALTH YAAH J T VISIT CLINIC OF 15 MINUTES [facility] OFFICE 88699 WOMEN'S NUR, OUTPATIEN 0 0 HEALTH AYAH J T VISIT CLINIC OF 15 MINUTES [facility] MICHELE - 0 0 [facility] OUTPATIEN INC T OFFICE 02482 WOMEN'S NUR, OUTPATIEN 0 0 HEALTH AYAH J T VISIT CLINIC OF 15 MINUTES [facility] OFFICE 40178 WOMEN'S NUR, OUTPATIEN 0 0 HEALTH AYAH J T VISIT CLINIC OF 15 MINUTES [facility] OFFICE 12321 WOMEN'S NUR, OUTPATIEN 0 0 HEALTH AYAH J T VISIT CLINIC OF 15 MINUTES [facility] MICHELE - 9 9 [facility] OUTPATIEN [facility] OFFICE 21189 WOMEN'S NUR, OUTPATIEN 9 9 HEALTH AYAH J T VISIT CLINIC OF 15 MINUTES [facility] OFFICE 10157 WOMEN'S NUR, OUTPATIEN 9 9 HEALTH AYAH J T VISIT CLINIC OF 15 MINUTES [facility] EMERGENCY 74361 [facility]LE 9 9 [facility] T VISIT LIMITED/M [facility] MICHELE - 9 9 [facility] OUTPATIEN INC T EMERGENCY 72510 BEATRICE BEDOYA, 9 9 EMERGENCY [facility] T VISIT HIGH/URGE ASSOCIATE NT S AIDE
--- OUTSIDE RECORDS SUMMARY | 2017-07-04 14:36 | External Medical Summary Rpt | CCD ---
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 [facility] METABOLIC INC INC PANEL DRUG 32819 MICHELE BAUTISTA ASSAY 5 [facility] CARBAMAZE INC INC PINE TOTAL BLOOD 94392 MICHELE BAUTISTA COUNT 5 [facility] COMPLETE INC INC AUTO&AUTO DIFRNTL WBC URNLS DIP 55620 MICHELE BAUTISTA 5 [facility] STICK/TAB INC INC LET REAGENT AUTO MICROSCOP Y URINE 57500 MICHELE BAUTISTA 5 [facility] TEST INC INC VISUAL COLOR CMPRSN METHS DRUG 37113 MICHELE BAUTISTA ASSAY 5 [facility] CARBAMAZE INC INC PINE TOTAL BLOOD 30867 MICHELE KELLEYON COUNT 5 [facility] COMPLETE INC INC AUTO&[place] [address] MICHELE MICHELE THYROID 5 [facility] STIMULATI INC INC NG HORMONE TSH COLLECTIO 05809 MICHELE BAUTISTA N VENOUS 5 [facility] BLOOD INC INC VENIPUNCT URE COMPREHEN 60629 MICHELE BAUTISTA SIVE 5 [facility] [place] [address] P&[facility] LABSCORY PAT SURG 5 LLC PATHOLOGY GROSS&MARCELLO ROSCOPIC EXAM COLPOSCOP 54536 YESI ELSA YESI ELSA Y CERVIX 5 UPPR/ADJC NT VAGINA W/CERVIX BX IADNA 47861 [facility] NEISSERIA 4 [facility] DEPT [facility] DEPT GONORRHOE ADALBERTO ADALBERTO AE AMPLIFIED PROBE TQ CYTP 26149 [facility] LABSTITUS CERV/VAG 4 LLC AUTO THIN LAYER PREP MNL SCREEN IADNA 30888 [facility] CHLAMYDIA 4 [facility] DEPT [facility] DEPT TRACHOMAT ADALBERTO ADALBERTO IS AMPLIFIED PROBE TQ IADNA 01413 P&C LABSTITUS PAPILLOMA 4 LLC VIRUS HUMAN AMPLIFIED PROBE TQ CYTP 98914 P&[facility] LABSTITUS CERVICAL/ 4 LLC VAGINAL REQ INTERP PHYSICIAN CONTRACEP J7303 [facility] T SUPPLY 4 [facility] DEPT CONTAININ ADALBERTO ADALBERTO G VAG RING EA URINE 07829 [facility] 4 [facility] TEST [facility] DEPT [facility] DEPT VISUAL ADALBERTO ADALBERTO COLOR CMPRSN METHS CONTRACEP A4267 [facility] TIVE 4 DISTRICT DISTRICT SUPPLY [facility] DEPT [facility] DEPT CONDOM ADALBERTO ADALBERTO MALE EACH CONTRACEP S4993 [facility] TIVE 4 [facility] DEPT [facility] DEPT ADALBERTO ADAL[facility]ERTO CONTROL CONTRACEP J7303 [facility] T SUPPLY 4 [facility] DEPT CONTAININ ADALBERTO ADALBERTO G VAG RING EA GROUND A0425 [facility] MILEAGE 4 AMBULANCE AMBULANCE PER SERVICE SERVICE STATUTE MILE AMBULANCE A0429 [facility] SERVICE 4 AMBULANCE AMBULANCE BLS SERVICE SERVICE EMERGENCY TRANSPORT BLOOD 72064 MICHELE MICHELE COUNT 4 [facility] COMPLETE INC INC AUTO&[place] [address] MICHELE BAUTISTA MAXILLOFA 4 [facility] CIAL W/O INC INC CONTRAST MATERIAL COMPREHEN 35878 MICHELE BAUTISTA SIVE 4 [facility] METABOLIC INC INC PANEL RADEX 77622 MICHELE BAUTISTA ELBOW 4 [facility] COMPLETE INC INC MINIMUM 3 VIEWS GONADOTRO 40275 MICHELE BAUTISTA PIN 4 [facility] CHORIONIC INC INC QUALITATI VE RADEX 49967 MICHELE BAUTISTA ELBOW 4 [facility] COMPLETE INC INC MINIMUM [address] UPPER 92297 MICHELE BAUTISTA EXTREMITY 4 [facility] W/O INC INC CONTRAST MATERIAL [place] ANY 99741 DELROY DELROY JT UPPER 4 GAVINO GAVINO EXTREMITY W/[place] [address] PETTEY PETTEY RADIAL 4 JAM JAM HEAD/NECK FX W/O MANIPULAT ION RADEX 96393 MICHELE BAUTISTA ELBOW 4 [facility] COMPLETE INC INC MINIMUM 3 VIEWS RADEX 18180 MICHELE BAUTISTA HAND 4 [facility] MINIMUM 3 INC INC VIEWS RADEX 05360 MICHELE BAUTISTA HUMERUS 4 [facility] MINIMUM 2 INC INC VIEWS RADEX 14245 MICHELE BAUTISTA FOREARM 2 4 [facility] VIEWS INC INC INJECTION J3301 VINCE SPIVEYSON 4 RADHA RADHA TRIAMCINO LONE ACETONIDE NOS 10 MG THERAPEUT 42178 VINCE CLARKE IC 4 RADHA RADHA PROPHYLAC TIC/DX INJECTION SUBQ/IM URINE 44960 MICHELE BAUTISTA 4 [facility] TEST INC INC VISUAL COLOR CMPRSN METHS COMPREHEN 78741 MICHELE BAUTISTA SIVE 4 [facility] METABOLIC INC INC PANEL CULTURE 30699 MICHELE BAUTISTA BACTERIAL 4 [facility] INC [place] [address] DELROY DELROY ABDOMEN & 4 GAVINO GAVINO PELVIS W/O CONTRAST MATERIAL BLOOD 44227 MICHELE BAUTISTA COUNT 4 [facility] COMPLETE INC INC AUTO&AUTO DIFRNTL WBC URNLS DIP 89463 MICHELE MICHELE 4 [facility] STICK/TAB INC INC LET REAGENT AUTO MICROSCOP Y CULTURE 02074 COMBINED COMBINED BACTERIAL 4 PHYSICIAN PHYSICIAN Yoni UREÑA QUANTTATI VE COLONY COUNT URINE URNLS DIP 04214 LUNA LUNA 4 MOSHE MOSHE STICK/TAB LET RGNT NON-AUTO W/O MICRSCP COMPREHEN 87530 MICHELE BAUTISTA SIVE 4 [facility] [place] [address] MICHELE BAUTISTA THYROID 4 [facility] STIMULATI INC INC NG HORMONE TSH DRUG 01049 MICHELE BAUTISTA ASSAY 4 [facility] CARBAMAZE INC INC PINE TOTAL BLOOD 42994 MICHELE BAUTISTA COUNT 4 [facility] COMPLETE INC INC AUTO&AUTO DIFRNTL WBC LEVONORGE J7302 [facility] NUR, STREL-RLS 0 [facility] E [facility]IN[facility] OF INTRAUTER N [place] CNTRACPT PLLC 52 MG URINE 92602 W[facility]EN'S NUR, 0 [facility] J TEST CLINIC OF VISUAL COLOR [place] CMPRSN PLLC METHS INSERTION 55071 [facility]EN'S NUR, 0 [facility] J INTRAUTER CLINIC OF INE DEVICE [place] IUD PLLC CYTP C/V 43842 PATHOLOGY PATHOLOGY AUTO THIN 0 & & LYR CYTOLOGY CYTOLOGY PREPJ SCR LAB LAB MNL RESCR [facility] 34906 [facility] CAMPUSE DISCHARGE 0 NOREEN ADLER JR INTERNAL SMITH Landa [facility] MED T 30 MIN/< ADMINISTR 9948 MICHELE BAUTISTA ATION OF 0 [facility] MEASLES-M INC INC UMPS-RUBE LLA VACCINE SBSQ 53896 [facility] 0 PHYSICIAN RADHA CARE/DAY GROUP 35 PCC MINUTES SUBQ 09984 [facility] 0 VITOR [place], CARE PER INTERNAL SMITH Landa DAY E/M MED NORMAL 1ST 69253 [facility]/BREE 0 MAYUR ADLER JR INTERNAL [facility] MED CARE PER DAY NML NB OTHER 7359 MICHELE BAUTISTA MANUALLY 0 [facility] ASSISTED INC INC DELIVERY NEURAXIAL 05447 [facility], LABOR 0 ANESTH AARON L ANALG/ANE OF THE S PLND [place] VAGINAL DELIVERY VAGINAL 81617 [facility] DELIVERY 0 PHYSICIAN RADHA ONLY GROUP PCC IADNA 34951 Rachel ALVARADO, Rachel STREPTOCO 0 JENNY Gomez CCUS PSC GROUP A QUANTIFIC ATION 52199 MICHELE BAUTISTA NONSTRESS 0 [facility] TEST INC INC HOSPITAL G0378 MICHELE BAUTISTA OBSERVATI 0 [facility] ON INC INC SERVICE PER HOUR OBSERVATI 26602 [facility] CARE 0 [facility] DISCHARGE CLINIC OF [facility] JUDY Fish [facility] 35122 WOMEN'S NUR OBSERVATI 0 [facility] ON CLINIC OF CARE/DAY 50 [place] MINUTES [facility] DOPPLER 88486 MICHELE BAUTISTA VELOCIMET 0 [facility] RY INC INC UMBILICAL ARTERY 40728 MICHELE BAUTISTA BIOPHYSIC 0 [facility] AL INC INC PROFILE W/O NON-STRES S TESTING 08692 MICHELE BAUTISTA NONSTRESS 0 [facility] TEST INC INC CULTURE 33560 COMBINED COMBINED BACTERIAL 0 PHYSICIAN PHYSICIAN S LAB S LAB QUANTTATI VE COLONY COUNT URINE CUL BACT 15416 COMBINED COMBINED XCPT 0 PHYSICIAN PHYSICIAN URINE S LAB S LAB BLOOD/STO OL AEROBIC ISOL OBSERVATI 08966 [facility] ON CARE 0 [facility] JUDY iFsh [facility] G0378 MICHELE BAUTISTA OBSERVATI 0 [facility] ON INC INC SERVICE PER HOUR THERAPEUT 72643 MICHELE BAUTISTA IC 0 [facility] PROPHYLAC INC INC TIC/DX INJECTION SUBQ/IM THERAPEUT 42414 MICHELE BAUTISTA IC 0 [facility] PROPHYLAC INC INC TIC/DX INJECTION SUBQ/IM 84670 MICHELE BAUTISTA NONSTRESS 0 [facility] TEST INC INC HOSPITAL G0378 MICHELE BAUTISTA OBSERVATI 0 [facility] [place] [address] MICHELE BAUTISTA INFUSION 0 [facility] HYDRATION INC INC INITIAL 31 MIN-1 HOUR CULTURE 87331 MICHELE BAUTISTA BACTERIAL 0 [facility] INC INC QUANTTATI VE COLONY COUNT URINE INITIAL 40284 [facility] OBSERVATI 0 PHYSICIAN RADHA ON GROUP CARE/DAY PCC 70 MINUTES BLOOD 19175 MICHELE BAUTISTA COUNT 0 [facility] COMPLETE INC INC AUTO&AUTO DIFRNTL WBC FTL 57065 MICHELE BAUTISTA FIBRONECT 0 [facility] IN INC INC CERVICOVA G SECRETION S SEMI-PAMELA URNLS DIP 67452 MICHELE BAUTISTA 0 [facility] STICK/TAB INC INC LET REAGENT AUTO MICROSCOP Y INITIAL 65111 WOMEN'S NUR, OBSERVATI 0 [facility] J ON CLINIC OF CARE/DAY 30 [place] MINUTES [facility] BLOOD 17893 MICHELE BAUTISTA COUNT 0 [facility] COMPLETE INC INC AUTO&AUTO DIFRNTL WBC [place] PREG 08512 WOMEN'S NUR, UTERUS 0 [facility]ALTH [facility] J REAL TIME CLINIC OF F/U TRNSABDL [place] PER FETUS [facility] 13279 WOMEN'S NUR, BIOPHYSIC 0 [facility] J AL CLINIC OF PROFILE W/O [place] NON-STRES [facility] S TESTING DOPPLER 83221 WOMEN'S NUR, VELOCIMET 0 [facility]ALTH [facility] J RY CLINIC OF UMBILICAL ARTERY [place] [facility] [place] [address] MICHELE BAUTISTA ESTRIOL 9 [facility] INC INC ALPHA-FET 33292 MICHELE BAUTISTA OPROTEIN 9 [facility] SERUM INC INC GONADOTRO 80978 MICHELE BAUTISTA PIN 9 [facility] CHORIONIC INC INC QUANTITAT RICHARD US PREG 62569 WOMEN'S NUR, UTERUS 9 [facility] J REAL TIME CLINIC OF W/IMAGE DCMTN [place] TRANSVAG PLL[facility] CYTP C/V 85261 PATHOLOGY PATHOLOGY AUTO THIN 9 & & LYR CYTOLOGY CYTOLOGY PREPJ SCR LAB LAB MNL RESCR PHYS IADNA 15386 PATHOLOGY PATHOLOGY NEISSERIA 9 & & CYTOLOGY CYTOLOGY GONORRHOE LAB LAB AE AMPLIFIED PROBE TQ IADNA 04201 PATHOLOGY PATHOLOGY CHLAMYDIA 9 & & CYTOLOGY CYTOLOGY TRACHOMAT LAB LAB IS AMPLIFIED PROBE TQ Encounters Encounter Start End Date Code Location Performer Type Date OFFICE 14338 [facility] 7 7 [facility] T VISIT INTERNAL 15 MED MINUTES OFFICE 59035 [facility] OUT[facility] 7 7 MEDICINE T NEW 30 OF MINUTES [facility] PERIODIC 45612 [facility] 7 7 [facility] E MED EST HLTH DEPT HLTH DEPT PATIENT ADALEBRTO ADALBERTO 18-39 YRS OFFICE 53091 [facility] 7 7 VALLEY T VISIT INTERNAL 25 MED MINUTES OFFICE 27670 [facility] ALLEN OUTPATIEN 7 7 HEALTH T VISIT MEDICAL 15 GROUP [facility] MUSLIM - 7 7 [facility] OUTPAT[facility] MUSLIM - 7 7 HEALTH OUTPATIEN [facility] OFFICE 41147 [facility] GRACIE OUTPATIEN 7 7 WOMENS T VISIT HEALTH 15 PLLC MINUTES OFFICE 51918 [facility] FUSON OUTPATIEN 7 7 WOMENS T VISIT HEALTH 15 PLLC MINUTES OFFICE 45855 [facility] RUDD OUTPATI[facility] 7 7 VALLEY T VISIT INTERNAL 15 MED MINUTES OFFICE 28452 [facility] BORDERS OUTPATIEN 7 7 WOMENS T VISIT HEALTH 15 PLLC MINUTES [facility] MUSLIM - 7 7 HEALTH OUTPATIEN [facility] OFFICE 33322 [facility] MARIE OUTPATI[facility] 7 7 WOMENS T VISIT HEALTH 15 PLLC MINUTES HOSPITAL [facility] - 6 6 [facility]PAT[facility] OFFICE 27410 [facility] 6 6 WOMENS T VISIT HEALTH 15 PLLC MINUTES OFFICE 09932 [facility] KAYY CONSULTAT 6 6 HEALTH ION MEDICAL NEW/ESTAB GROUP PATIENT 15 MIN OFFICE 06497 [facility] BRAULIO OUTPATIEN 6 6 HEALTH BAR T VISIT MEDICAL 15 GROUP MINUTES HOSPITAL [facility] - 6 6 HEALTH OUTPATIEN [facility] OFFICE 99308 [facility] BRAULIO OUTPATIEN 6 6 HEALTH BAR T VISIT MEDICAL 15 GROUP MINUTES OFFICE 25402 [facility] VINCE OUTPATIEN 6 6 [facility] T VISIT INTERNAL 15 MED MINUTES OFFICE 89920 [facility] BRAULIO OUTPATIEN 6 6 HEALTH BAR T VISIT MEDICAL 15 GROUP MINUTES OFFICE 62100 [facility] JEANETTE CONSULTAT 6 6 HEALTH ION MEDICAL NEW/ESTAB GROUP PATIENT 30 MIN HOSPITAL [facility] - 6 6 HEALTH OUTPATIEN [facility] MUSLIM - 6 6 HEALTH OUTPATIEN [facility] OFFICE 74625 [facility] BRAULIO OUTPATIEN 6 6 HEALTH BAR T NEW 45 MEDICAL MINUTES GROUP HOSPITAL MICHELE - 6 6 MEM [facility] OUTPATIEN [facility] T OFFICE 50942 [facility] 6 6 [facility] T VISIT [facility] DEPT TH DEPT 10 ADALBERTO ADALBERTO MINUTES OFFICE 77651 VANES[facility] HUNTER OUTPATIEN 6 6 YESI HATCH T VISIT 15 MINUTES OFFICE 49748 [facility] HUNTER OUTPATIEN 6 6 YESI HATCH T VISIT 15 MINUTES OFFICE 93719 [facility] 6 6 [facility] T VISIT INTERNAL 15 MED MINUTES OFFICE 73266 [facility] 6 6 [facility] T VISIT INTERNAL 25 MED MINUTES OFFICE 19075 VANESA HUNTER OUTPATIEN 6 6 YESI HATCH T VISIT 15 MINUTES HOSPITAL MIC[facility]LE - 6 6 [facility] OUTPATIEN INC T EMERGENCY 32980 [facility] 6 6 [facility] DEPARTMEN INC T VISIT LOW/MODER SEVERITY EMERGENCY 06196 JEFFERY HONG [facility] 6 6 PHYSICIAN DEPARTMEN S, [facility] T VISIT HIGH/URGE NT SEVERITY OFFICE 54987 [facility] 5 5 [facility] T VISIT INTERNAL 15 MED MINUTES EMERGENCY 11298 JEFFERY [facility] 5 [facility] T VISIT HIGH/URGE NT SEVERITY HOSPITAL [facility] - 5 5 [facility] OUTPATIEN INC T EMERGENCY 56049 [facility] 5 5 [facility] DEPARTMEN INC T VISIT MODERATE SEVERITY EMERGENCY 21153 MICHELE 5 5 [facility] DEPARTMEN INC T VISIT LOW/MODER SEVERITY HOSPITAL [facility] - 5 5 [facility] OUTPATIEN INC T OFFICE 75491 [facility] 5 5 [facility] T VISIT INTERNAL 15 MED MINUTES OFFICE 10453 YESI ELSA YESI ELSA OUTPATIEN 5 5 T VISIT 15 MINUTES OFFICE 76714 YESI ELSA YESI ELSA OUTPATIEN 5 5 T VISIT 15 MINUTES OFFICE 68803 [facility] 5 5 [facility] T VISIT [facility] DEPT [facility] DEPT 10 ADALBERTO ADALBERTO MINUTES EMERGENCY 27145 [facility] RYDER 5 5 [facility] T VISIT P MODERATE SEVERITY HOSPITAL [facility] - 5 5 [facility] OUTPATIEN INC T OFFICE 30598 [facility] VINCE [facility]PATI[facility] 5 5 [facility] T VISIT INTERNAL 15 MED MINUTES HOSPITAL MIC[facility]LE - 5 5 [facility] OUTPATIEN INC T EMERGENCY 53885 [facility] JAIN 5 5 [facility] T VISIT P MODERATE SEVERITY HOSPITAL MIC[facility]LE - 5 5 [facility] OUTPATIEN INC [facility]OSPITAL [facility] - 5 5 [facility] OUTPATIEN [facility] OFFICE 86097 YESI ELSA YESI ELSA OUTPATIEN 5 5 T VISIT 15 MINUTES OFFICE 45369 YESI ELSA YESI ELSA CONSULTAT 5 5 ION NEW/ESTAB PATIENT 40 MIN PERIODIC 03439 [facility] 4 4 [facility] E MED EST HLTH DEPT HL DEPT PATIENT ADALBERTO ADALBERTO 18-39 YRS OFFICE 24271 [facility] OUTPATIEN 4 4 [facility] T VISIT HLTH DEPT TH DEPT 15 ADALBERTO ADALBERTO MINUTES OFFICE 92761 [facility] 4 4 [facility] T VISIT TH DEPT TH DEPT 15 ADALBERTO ADALBERTO MINUTES EMERGENCY 40361 [facility] 4 4 [facility] T [facility]ISIT [facility]IGH/URGE NT SEVERITY [facility] T EMERGENCY 80655 [facility] 4 4 [facility] T VISIT [facility]OW/MODER SEVERITY [facility] - [facility] 4 [facility] 85183 [facility] DEPARTMEN T VISIT HIGH/URGE NT SEVERITY EMERGENCY 72344 [facility] 4 4 [facility] T VISIT LOW/MODER SEVERITY OFFICE 67989 [facility]ARKE OUTPATIEN 4 4 RADHA RADHA T VISIT 25 MINUTES EMERGENCY 52158 BRITNI BRITNI DEPT 4 4 MARCELLO MARCELLO VISIT HIGH SEVERITY& THREAT FUNCJ EMERGENCY 19105 [facility] 4 4 [facility] T VISIT LOW/MODER SEVERITY [facility] - [facility] 4 [facility] T OFFICE 70038 [facility] BEREA[facility] 4 4 [facility] T VISIT 10 MINUTES [facility] - 4 4 [facility] T OFFICE 84358 [facility], [facility] 0 0 [facility] 25 MINUTES [facility] OFF[facility] 87400 [facility], OUT[facility]IEN 0 0 [facility] T [facility]INIC OF 15 MINUTES [facility] - 0 0 [facility] OFFICE 49626 Rachel ODELL OUTPATIEN 0 0 JENNY Gomez T VISIT PSC 15 MINUTES OFFICE 64311 [facility], OUTPATIEN 0 0 [facility] T VISIT CLINIC OF 15 MINUTES [facility] - 0 0 [facility] T OFFICE 95546 [facility], OUTPATIEN 0 0 [facility] T VISIT CLINIC OF 15 MINUTES [facility] - 0 0 [facility] - 0 0 [facility] T OFFICE 25929 [facility], OUTPATIEN 0 0 [facility] T [facility] OF 15 MINUTES [facility] OFFICE 98490 [facility], OUTPATIEN 0 0 [facility] T VISIT CLINIC OF 15 MINUTES [facility] - 0 0 [facility] T OFFICE 06593 [facility], OUTPATIEN 0 0 [facility] T [facility] OF 15 MINUTES [facility] OFF[facility] 17399 [facility], OUTPATIEN 0 0 [facility] T [facility] OF 15 MINUTES [facility] OFFICE 18204 [facility], OUTPATIEN 0 0 [facility] T VISIT CLINIC OF 15 MINUTES [facility] - 9 9 [facility] OFFICE 72969 [facility], OUTPATIEN 9 9 [facility] T [facility] OF 15 MINUTES [facility] OFF[facility] 10336 [facility], OUTPATIEN 9 9 [facility] T V[facility] OF 15 MINUTES [facility] EM[facility] 01116 [facility] 9 [facility] T VISIT LIMITED/M INOR [facility] - 9 9 [facility] T EMERGENCY 11028 BEATRICE BEDOYA, 9 9 EMERGENCY [facility] T VISIT HIGH/URGE ASSOCIATE NT S AIDE
--- OUTSIDE RECORDS SUMMARY | 2017-07-04 14:42 | External Medical Summary Rpt | CCD ---
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 ELSA Y CERVIX 5 UPPR/ADJC NT VAGINA W/CERVIX BX ENDOCERVI 74101 YESI ELSA YESI ELSA RHONA 5 CURETTAGE W/DILATIO N & [place] [address] [facility], WOO SURG [facility] MELISSA PATHOLOGY GROSS&MARCELLO ROSCOPIC EXAM CYTP C/V 92304 [facility], WOO AUTO THIN [facility] MELISSA LYR PREPJ SCR MNL RESCR PHYS CYTP 53468 [facility], WOO CERVICAL/ 5 [facility] MELISSA VAGINAL REQ INTERP PHYSICIAN CONTRACEP J7303 [facility] T SUPPLY 5 [facility] HORMONE TH DEPT HLTH DEPT CONTAININ ADALBERTO ADALBERTO G VAG RING EA THERAPEUT 69831 MICHELE BAUTISTA IC 5 [facility] INJECTION INC INC IV PUSH EACH NEW DRUG CULTURE 75782 COMBINED COMBINED BACTERIAL 5 PHYSICIAN PHYSICIAN S NIRANJAN HOOD VE COLONY COUNT URINE LEVEL V 56751 [facility], BEATRICE SURG 5 [facility] JACOB PATHOLOGY GROSS&[place] [address] [facility], BEATRICE SURG [facility] JACOB PATHOLOGY GROSS&MARCELLO ROSCOPIC EXAM COLPOSCOP 79266 YESI ELSA YESI ELSA Y CERVIX 5 VAG ELTRD CONIZATIO N CERVIX US SOFT 37784 [place] DELROY TISSUE 5 MEDICAL GAVINO HEAD & IMAGING NECK REAL ASS TIME IMGE DOCM DRUG 74495 MICHELE BAUTISTA ASSAY 5 [facility] CARBAMAZE INC INC PINE TOTAL BLOOD 03400 MICHELE BAUTISTA COUNT 5 [facility] COMPLETE INC INC AUTO&AUTO DIFRNTL WBC URINE 29319 MICHELE BAUTISTA 5 [facility] TEST INC INC VISUAL COLOR CMPRSN METHS URNLS DIP 20639 MICHELE BAUTISTA 5 [facility] STICK/TAB INC [place] [address] MICHELE BAUTISTA HEAD/BRAI 5 [facility] N W/O INC INC CONTRAST MATERIAL COMPREHEN 99300 MICHELE BAUTISTA SIVE 5 [facility] METABOLIC INC INC PANEL COMPREHEN 17831 MICHELE BAUTISTA SIVE 5 [facility] [address] MICHELE BAUTISTA THYROID 5 [facility] STIMULATI INC INC NG HORMONE TSH BLOOD 23726 MICHELE BAUTISTA COUNT 5 [facility] COMPLETE INC INC AUTO&AUTO DIFRNTL WBC COLLECTIO 77439 MICHELE BAUTISTA N VENOUS 5 [facility] BLOOD INC INC VENIPUNCT URE DRUG 21973 MICHELE BAUTISTA ASSAY 5 [facility] CARBAMAZE INC INC PINE TOTAL COLPOSCOP 30036 YESI ELSA YESI ELSA Y CERVIX 5 UPPR/ADJC NT VAGINA [place] [address] [facility], CORY PAT SURG [facility] PATHOLOGY GROSS&MARCELLO ROSCOPIC EXAM IADNA 34043 [facility] NE[facility]IA [facility] DEPT GONORRHOE ADALBERTO ADALBERTO AE AMPLIFIED PROBE TQ CONTRACEP J7303 [facility] T [facility]Y 4 [facility] DEPT CONTAININ ADALBERTO ADALBERTO G VAG RING EA CYTP 55503 [facility] CERV/VAG [facility] AUTO THIN LAYER PREP MNL SCREEN IADNA 25081 [facility] CHLAMYDIA 4 [facility] DE[facility] TRACHOMAT ADALBERTO ADALBERTO IS AMPLIFIED PROBE TQ CYTP 29584 [facility] CERVICAL/ 4 LLC VAGINAL REQ INTERP PHYSICIAN IADNA 66210 [facility] PAPILLOMA [facility] VIRUS HUMAN AMPLIFIED PROBE TQ CONTRACEP A4267 [facility] TIVE 4 [facility]Y [facility] DE[facility] CONDOM ADALBERTO ADALBERTO MALE EACH CONTRACEP S4993 [facility] TIVE [facility] DEPT ADALBERTO ADALBERTO CONTROL CONTRACEP J7303 [facility] T SUPPLY 4 [facility] HORMONE TH DEPT [facility] DEPT CONTAININ ADALBERTO ADALBERTO G VAG RING EA URINE 83711 [facility] 4 [facility] DISTRICT TEST [facility] DEPT [facility] DEPT VISUAL ADALBERTO ADALBERTO COLOR CMPRSN METHS RADEX 12891 MICHELE BAUTISTA ELBOW 4 [facility] COMPLETE INC [place] MINIMUM [address] [place] [address] MICHELE BAUTISTA MAXILLOFA 4 [facility] CIAL W/O INC INC CONTRAST MATERIAL GROUND A0425 ANI ANI MILEAGE 4 AMBULANCE AMBULANCE PER SERVICE SERVICE STATUTE MILE AMBULANCE A0429 ANI [facility] SERVICE 4 AMBULANCE AMBULANCE BLS SERVICE SERVICE EMERGENCY TRANSPORT BLOOD 80835 MICHELE BAUTISTA COUNT 4 [facility] COMPLETE INC INC AUTO&AUTO DIFRNTL WBC GONADOTRO 92224 MICHELE BAUTISTA PIN 4 [facility] CHORIONIC INC INC QUALITATI VE COMPREHEN 09115 MICHELE BAUTISTA SIVE 4 [facility] METABOLIC INC INC PANEL RADEX 69022 MICHELE BAUTISTA ELBOW 4 [facility] COMPLETE INC INC MINIMUM [address] UPPER 77626 DELROY DELROY EXTREMITY 4 GAVINO GAVINO W/O CONTRAST MATERIAL MRI ANY 10518 [facility] DELROY JT UPPER 4 GAVINO GAVINO EXTREMITY W/[place] [address] PETTEY PETTEY RADIAL 4 JAM JAM HEAD/NECK FX W/O MANIPULAT ION RADEX 89960 DELRO[facility] DELROY ELBOW 4 GAVINO GAVINO COMPLETE MINIMUM 3 VIEWS RADEX 46872 [facility] DELROY HAND 4 GAVINO GAVINO MINIMUM 3 VIEWS RADEX 77421 [facility] DELROY HUMERUS 4 GAVINO GAVINO MINIMUM 2 VIEWS RADEX 65721 [facility] DELROY FOREARM 2 4 GAVINO GAVINO VIEWS THERAPEUT 94053 VINCE CLARKE IC 4 RADHA RADHA PROPHYLAC TIC/DX INJECTION SUBQ/IM INJECTION J3301 VINCE SPIVEYHINA 4 RADHA RADHA TRIAMCINO LONE ACETONIDE NOS 10 MG URNLS DIP 23644 MICHELE MICHELE 4 [facility] STICK/TAB INC INC LET REAGENT AUTO MICROSCOP Y URINE 90336 MICHELE MICHELE 4 [facility] TEST INC INC VISUAL COLOR CMPRSN METHS BLOOD 23099 MICHELE BAUTISTA COUNT 4 [facility] COMPLETE INC INC AUTO&AUTO DIFRNTL WBC CULTURE 58635 MICHELE BAUTISTA BACTERIAL 4 [facility] INC INC [place] [address] MICHELE BAUTISTA ABDOMEN & 4 [facility] PELVIS INC INC W/O CONTRAST MATERIAL COMPREHEN 04958 MICHELE BAUTISTA SIVE 4 [facility] METABOLIC INC INC PANEL URNLS DIP 83895 LUNA LUNA 4 MOS[facility] MOSHE STICK/TAB LET RGNT NON-AUTO W/O MICRSCP CULTURE 08882 COMBINED COMBINED BACTERIAL 4 PHYSICIAN PHYSICIAN S LA S LA [place]TTAT[place] [address] MICHELE BAUTISTA THYROID 4 [facility] STIMULATI INC INC NG HORMONE TSH BLOOD 08205 MICHELE BAUTISTA COUNT 4 [facility] COMPLETE INC INC AUTO&AUTO DIFRNTL WBC DRUG 44457 MICHELE BAUTISTA ASSAY 4 [facility] CARBAMAZE INC INC PINE TOTAL COMPREHEN 55019 MICHELE BAUTISTA SIVE 4 [facility] METABOLIC INC INC PANEL LEVONORGE J7302 WOMEN'S NUR, STREL-RLS 0 [facility]ALTH AYAH J E [facility] OF INTRAUTER N [place] CNTRACPT PLLC 52 MG INSERTION 87437 WOMEN'S NUR, 0 HEALTH AYAH J INTRAUTER CLINIC OF INE DEVICE [place] IUD PLLC URINE 61406 WOMEN'S NUR, 0 HEALTH AYAH J TEST CLINIC OF VISUAL COLOR [place] CMPRSN PLLC METHS CYTP C/V 43446 PATHOLOGY PATHOLOGY AUTO THIN 0 & & LYR CYTOLOGY CYTOLOGY PREPJ SCR LAB LAB MNL RESCR PHYS ADMINISTR 9948 MICHELE BAUTISTA ATION OF 0 [facility] MEASLES-M INC INC [facility]GE [facility] RADHA DAY GROUP MANAGEMEN PCC T 30 MIN/< SBSQ 76828 [facility] 0 PHYSICIAN RADHA CARE/DAY GROUP 35 PCC MINUTES SUBQ 77968 [facility] 0 [facility], CARE PER INTERNAL [facility] E/M MED NORMAL NEURAXIAL 22846 [facility], LABOR 0 ANESTH AARON L ANALG/ANE OF THE S PLND [place] VAGINAL DELIVERY VAGINAL 58669 [facility] DELIVERY 0 PHYSICIAN RADHA ONLY GROUP PCC 1ST 40345 [facility], [facility], [place], [facility] CARE PER DAY NML NB OTHER 7359 MICHELE BAUTISTA MANUALLY 0 [facility] ASSISTED INC INC DELIVERY IADNA 71341 Rachel ALVARADO, Rachel STREPTOCO 0 JENNY Gomez CCUS PSC GROUP A [facility]8 MICHELE BAUTISTA OBSERVATI 0 [facility] ON INC INC SERVICE PER HOUR OBSERVATI 67004 WOMEN'S BOOM ON CARE 0 HEALTH AYAH Alvarado DISCHARGE CLINIC OF [place]GEMEN [place] [facility] 66234 MICHELE BAUTISTA NONSTRESS 0 [facility] TEST INC INC 96045 MICHELE BAUTISTA NONSTRESS 0 [facility] TEST INC INC 34377 YADI BOYLE 0 MEDICAL [place] IMAGING PROFILE ASSOCIATE W/O S NON-STRES S TESTING INITIAL 98864 WOMEN'S BOOM, OBSERVATI 0 HEALTH AYAH J ON CLINIC OF CARE/DAY 50 [place] MINUTES PLLC DOPPLER 97785 INDY POTTS VELOCIMET 0 MEDICAL [place]AP[place] RY IMAGING UMBILICAL ASSOCIATE ARTERY S CULTURE 62517 COMBINED COMBINED BACTERIAL 0 PHYSICIAN PHYSICIAN S LAB S LAB QUANTTATI VE COLONY COUNT URINE CUL BACT 30862 COMBINED COMBINED XCPT 0 PHYSICIAN PHYSICIAN URINE S LAB S LAB BLOOD/STO OL AEROBIC ISOL OBSERVATI 97242 WOMEN'S NUR, ON CARE 0 JD Alvarado DISCHARGE CLINIC OF MANAGEPAT KIM T [facility] G0378 MICHELE BAUTISTA OBSERVATI 0 [facility] ON INC INC SERVICE PER HOUR THERAPEUT 28681 MICHELE BAUTISTA IC 0 [facility] PROPHYLAC INC INC TIC/DX INJECTION SUBQ/IM THERAPEUT 77649 MICHELE BAUTISTA IC 0 [facility] PROPHYLAC INC INC TIC/[place] INJECTION SUBQ/[place] [address] MICHELE BAUTISTA INFUSION 0 [facility] HYDRATION INC INC INITIAL 31 MIN-[facility] G0378 MICHELE BAUTISTA OBSERVATI 0 [facility] ON INC INC SERVICE PER HOUR FTL 63930 MICHELE BAUTISTA FIBRONECT 0 [facility] IN INC INC CERVICOVA G SECRETION S SEMI-PAMELA BLOOD 46887 MICHELE BAUTISTA COUNT 0 [facility] COMPLETE INC INC AUTO&AUTO DIFRNTL WBC INITIAL 76546 WOMEN'S BOOM, OBSERVATI 0 JD Alvarado ON CLINIC OF CARE/DAY 30 [place] MINUTES PLLC 96317 MICHELE BAUTISTA NONSTRESS 0 [facility] TEST INC INC INITIAL 02567 [facility] HARPEL OBSERVATI 0 PHYSICIAN RADHA ON GROUP CARE/DAY PCC 70 MINUTES CULTURE 67601 MICHELE BAUTISTA BACTERIAL 0 [facility] INC INC QUANTTATI VE COLONY COUNT URINE URNLS DIP 89772 MICHELE BAUTISTA 0 [facility] STICK/TAB INC INC LET REAGENT AUTO MICROSCOP Y BLOOD 17307 MICHELE BAUTISTA COUNT 0 [facility] COMPLETE INC INC AUTO&AUTO DIFRNTL WBC 18900 WOMEN'S BOOM, BIOPHYSIC 0 JD Alvarado AL CLINIC OF PROFILE W/O [place] NON-STRES [facility] S TESTING US PREG 18397 WOMEN'S NUR, UTERUS 0 JD Alvarado REAL TIME CLINIC OF F/U TRNSABDL [place] PER FETUS [facility] DOPPLER 96710 WOMEN'S NUR, VELOCIMET 0 HEALTH AYAH J RY CLINIC OF UMBILICAL ARTERY [place] [facility] [place] [address] MICHELE BAUTISTA ESTRIOL 9 [facility] INC INC ALPHA-FET 10895 MICHELE BAUTISTA OPROTEIN 9 [facility] SERUM INC INC GONADOTRO 32095 MICHELE BAUTISTA PIN 9 [facility] CHORIONIC INC INC [place]ITAT [place] PREG 03055 WOMEN'S NUR, UTERUS 9 HEALTH AYAH J REAL TIME CLINIC OF W/IMAGE DCMTN [place] TRANSVAG [facility] CYTP C/V 16374 PATHOLOGY PATHOLOGY AUTO THIN 9 & & LYR CYTOLOGY CYTOLOGY PREPJ SCR LAB LAB MNL RESCR PHYS IADNA 45284 PATHOLOGY PATHOLOGY NEISSERIA 9 & & CYTOLOGY CYTOLOGY GONORRHOE LAB LAB AE AMPLIFIED PROBE TQ IADNA 71216 PATHOLOGY PATHOLOGY CHLAMYDIA 9 & & CYTOLOGY CYTOLOGY TRACHOMAT LAB LAB IS AMPLIFIED PROBE TQ Encounters Encounter Start End Date Code Location Performer Type Date OFFICE 71575 [facility] 7 7 [facility] T VISIT INTERNAL 15 MED MINUTES OFFICE 89009 GARCÍA [facility] OUTPATIEN 7 7 MEDICINE T NEW 30 OF MINUTES [facility] PERIODIC 01075 [facility] 7 7 [facility] E MED EST HLTH DEPT HLTH DEPT PATIENT ADALBERTO ADALBERTO 18-39 YRS OFFICE 48871 [facility] 7 7 VALLEY T VISIT INTERNAL 25 MED MINUTES OFFICE 34041 [facility] PENNY OUTPATIEN 7 7 HEALTH T VISIT MEDICAL 15 [facility] WORSHIP - 7 7 HEALTH INPATIENT [facility] WORSHIP - 7 7 HEALTH [facility]PATI[facility] WORSHIP - 7 [address] HEALTH OUTPATIEN [facility] OFFICE 72171 ROHITH CORDEROCKER OUTPATIEN 7 7 WOMENS T VISIT HEALTH 15 PLLC MINUTES OFFICE 47734 [place] [facility] OUT[facility] 7 7 WOMENS T VISIT HEALTH 15 PLLC MINUTES OFFICE 58835 [facility]D [facility] 7 7 VALLEY T VISIT INTERNAL 15 MED MINUTES OFFICE 41270 [place] [facility] OUTPATIEN 7 7 WOMENS T VISIT HEALTH 15 PLLC MINUTES HOSPITAL WORSHIP - 7 7 [facility] 49922 ROHITH MARIE OUTPATIEN 7 7 WOMENS T VISIT HEALTH 15 PLLC MINUTES HOSPITAL WORSHIP - 6 6 [facility] T OFFICE 31376 ROHITH PUGH CRIS OUTPATIEN 6 6 WOMENS T VISIT HEALTH 15 PLLC MINUTES HOSPITAL WORSHIP - 6 6 [facility] T OFF[facility] 53091 WORSHIP HIETT CONSULTAT 6 6 HEALTH ION MEDICAL NEW/ESTAB GROUP PATIENT 15 MIN OFFICE 24013 WORSHIP BRAULIO OUTPATIEN 6 6 HEALTH BAR T VISIT MEDICAL 15 GROUP MINUTES OFFICE 26665 WORSHIP BRAULIO OUTPATIEN 6 6 HEALTH BAR T VISIT MEDICAL 15 GROUP MINUTES OFFICE 81912 [facility] 6 6 VALLEY RADHA T VISIT INTERNAL 15 MED MINUTES HOSPITAL WORSHIP - 6 6 HEALTH OUTPATIEN [place] T OFFICE 67965 WORSHIP BRAULIO OUTPATIEN 6 6 HEALTH BAR T VISIT MEDICAL 15 GROUP MINUTES OFFICE 27644 WORSHIP JEANETTE CONSULTAT 6 6 HEALTH ION MEDICAL NEW/ESTAB GROUP PATIENT 30 MIN HOSPITAL WORSHIP - 6 6 HEALTH OUTPATIEN [place] T OFFICE 18970 ANKUSH RAMSEY OUTPATIEN 6 6 HEALTH BAR T NEW 45 MEDICAL MINUTES [facility] MICHELE - 6 6 [facility] OUTPATIEN INC T OFFICE 70199 [facility] T VISIT TH DEPT TH DEPT 10 ADALBERTO ADALBERTO MINUTES OFFICE 33970 VANESA HUNTER OUTPATIEN 6 6 YESI HATCH T VISIT 15 MINUTES OFFICE 48242 VANESA HUNTER OUTPATIEN 6 6 YESI HATCH T VISIT 15 MINUTES OFFICE 21423 [facility] 6 6 [facility] T VISIT INTERNAL 15 MED MINUTES OFFICE 12150 [facility] 6 6 [facility] T VISIT INTERNAL 25 MED MINUTES OFFICE 98830 VANESA HUNTER OUTPATIEN 6 6 YESI HATCH T VISIT 15 MINUTES HOSPITAL MICHELE - 6 6 [facility] OUTPATIEN INC T EMERGENCY 71347 [facility]FF[facility] H[facility] 6 6 PHYSICIAN DEPARTMEN S, PLLC T VISIT HIGH/URGE NT SEVERITY EMERGENCY 39241 MICHELE 6 6 [facility] DEPARTMEN INC T VISIT LOW/MODER SEVERITY OFFICE 18447 [facility] 5 5 [facility] T VISIT INTERNAL 15 MED MINUTES HOSPITAL MICHELE - 5 5 [facility] OUTPATIEN INC T EMERGENCY 38944 JEFFERY CARR 5 5 PHYSICIAN DEPARTMEN S, PLLC T VISIT HIGH/URGE NT SEVERITY EMERGENCY 31257 MICHELE 5 5 [facility] DEPARTMEN INC T VISIT MODERATE SEVERITY HOSPITAL MICHELE - 5 5 [facility] OUTPATIEN INC T EMERGENCY 06555 MICHELE 5 5 [facility] DEPARTMEN INC T VISIT LOW/MODER SEVERITY OFFICE 05887 [facility] 5 5 VAL[facility] RADHA T VISIT INTERNAL 15 MED MINUTES OFFICE 09001 YESI ELSA YESI ELSA OUTPATIEN 5 5 T VISIT 15 MINUTES OFFICE 79072 YESI ELSA YESI ELSA OUTPATIEN 5 5 T VISIT 15 MINUTES OFFICE 38863 [facility] DEPT 10 DAALBERTO ADALBERTO MINUTES EMERGENCY 01251 MICHELE BRITNI 5 5 [facility] T VISIT P MODERATE SEVERITY HOSPITAL MICHELE - 5 5 [facility] OUTPATIEN INC T OFFICE 74107 [facility] 5 5 [facility] RADHA T VISIT INTERNAL 15 MED MINUTES HOSPITAL MICHELE - 5 5 [facility] OUTPATIEN INC T EMERGENCY 21713 MIC[facility]LE 5 5 [facility] DEPARTMEN INC T VISIT MODERATE SEVERITY HOSPITAL MIC[facility]LE - 5 5 [facility] OUTPATIEN INC T HOSPITAL MIC[facility]LE - 5 5 [facility] OUTPATIEN INC T OFFICE 61900 YESI ELSA YESI ELSA OUTPATIEN 5 5 T VISIT 15 MINUTES OFFICE 21380 YESI ELSA YESI ELSA CONSULTAT 5 5 ION NEW/ESTAB PATIENT 40 MIN PERIODIC 04626 [facility] MED EST [facility] DE[facility] DEPT PATIENT ADALBERTO ADALBERTO 18-39 YRS OFFICE 33855 [facility] VISIT [facility] DE[facility] DEPT 15 ADALBERTO ADALBERTO MINUTES OFFICE 17040 [facility]IT [facility] DE[facility] DEPT 15 ADALBERTO ADALBERTO MINUTES EMERGENCY 46933 MICHELE 4 4 [facility] DEPARTMEN INC T VISIT LOW/MODER SEVERITY HOSPITAL MICHELE - 4 4 [facility] OUTPATIEN INC T EMERGENCY 30423 BRITNI RYDER 4 4 MARCELLO MARCELLO DEPARTMEN T VISIT HIGH/URGE NT SEVERITY HOSPITAL MICHELE - 4 4 [facility] OUTPATIEN INC T HOSPITAL MICHELE - 4 4 [facility] T [facility] 4 4 [facility] OUTPATIEN INC T EMERGENCY [id number] [place] 4 4 [facility] DEPARTMEN INC T VISIT LOW/MODER SEVERITY EMERGENCY 55894 BRITNI RYDER 4 4 [facility] DEPARTMEN T VISIT HIGH/URGE NT SEVERITY OFFICE 39326 VINCE CLARKE OUTPATIEN 4 4 [facility] T VISIT 25 MINUTES EMERGENCY 01664 BRITNI RYDER DEPT 4 4 [facility] MARCELLO VISIT HIGH SEVERITY& THREAT [facility] - 4 4 [facility] OUTPATIEN INC T EMERGENCY 12037 [place] 4 4 [facility] DEPARTMEN INC T VISIT LOW/MODER SEVERITY OFFICE 67111 LUNA LUNA OUTPATIEN 4 4 [facility] T VISIT 10 MINUTES HOSP[facility] [place] - 4 4 [facility] OUTPATIEN INC T OFFICE 84239 [facility]S NUR, OUTPATIEN 0 0 HEALTH YAAH J T VISIT CLINIC OF 25 MINUTES [facility] OFFICE 34630 WOMEN'S NUR, OUTPATIEN 0 0 HEALTH AYAH J T VISIT CLINIC OF 15 MINUTES [facility] - 0 0 [facility]IENT [facility] OFFICE 95092 Rachel ODELL OUTPATIEN 0 0 JENNY Gomez T VISIT [facility] 15 MINUTES OFFICE 23658 WOMEN'S NUR, OUTPATIEN 0 0 HEALTH AYAH J T VISIT CLINIC OF 15 MINUTES [facility] - 0 0 [facility] OUT[facility]EN [facility] OFFICE 73386 WOMEN'S NUR, OUTPATIEN 0 0 HEALTH AYAH J T VISIT CLINIC OF 15 MINUTES [facility] - 0 0 [facility] - 0 0 [facility] OFFICE 45217 WOMEN'S NUR, OUTPATIEN 0 0 HEALTH AYAH J T VISIT CLINIC OF 15 MINUTES [facility] OFFICE 67967 WOMEN'S NUR, OUTPATIEN 0 0 HEALTH AYAH J T VISIT CLINIC OF 15 MINUTES [facility] 61962 WOMEN'S NUR, OUTPATIEN 0 0 HEALTH AYAH J T VISIT CLINIC OF 15 MINUTES [facility] OFFICE 60570 WOMEN'S NUR, OUTPATIEN 0 0 HEALTH AYAH J T VISIT CLINIC OF 15 MINUTES [facility] OFFICE 48590 WOMEN'S NUR, OUTPATIEN 0 0 HEALTH AYAH J T VISIT CLINIC OF 15 MINUTES [facility] 9 [facility] OFF[facility] 83819 WOMEN'S NUR, OUTPATIEN 9 9 HEALTH AYAH J T VISIT CLINIC OF 15 MINUTES [facility] OFFICE 07796 WOMEN'S NUR, OUTPATIEN 9 9 HEALTH AYAH J T VISIT CLINIC OF 15 MINUTES [facility] EMERGENCY 09192 [facility] 9 9 [facility]M INOR PROB EMERGENCY 97838 BEATRICE BEDOYA, 9 9 [facility] T [facility]ISIT HIGH/URGE ASSOCIATE [facility] [place] - 9 9 [facility] OUTPATIEN [facility] T
--- OUTSIDE RECORDS SUMMARY | 2017-07-04 14:42 | External Medical Summary Rpt | CCD ---
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 AMPLIFIED PROBE TQ CONTRACEP A4267 [facility] TIVE [facility] DEPT CONDOM ADALBERTO ADALBERTO MALE EACH CONTRACEP S4993 [facility] TIVE [facility] DEPT ADALBERTO ADALBERTO CONTROL CONTRACEP J7303 [facility] T SUPPLY 4 [facility] HORMONE TH DEPT [facility] DEPT CONTAININ ADALBERTO ADALBERTO G VAG RING EA URINE 80955 [facility] 4 [facility] DISTRICT TEST [facility] DEPT [facility] DEPT VISUAL ADALBERTO ADALBERTO COLOR CMPRSN METHS RADEX 48972 MICHELE BAUTISTA ELBOW 4 [facility] COMPLETE INC [place] MIN[address] [address] [place] [address] MICHELE BAUTISTA MAXILLOFA [address] [facility] CIAL W/O INC INC CONTRAST MATERIAL GROUND A0425 ANI ANI MILEAGE 4 AMBULANCE AMBULANCE PER SERVICE SERVICE STATUTE MILE AMBULANCE A0429 [facility] SERVICE 4 AMBULANCE AMBULANCE BLS SERVICE SERVICE EMERGENCY TRANSPORT BLOOD 61037 MICHELE BAUTISTA COUNT 4 [facility] COMPLETE INC INC AUTO&AUTO DIFRNTL WBC GONADOTRO 59808 MICHELE BAUTISTA PIN 4 [facility] CHORIONIC INC INC QUALITATI VE COMPREHEN 46630 MICHELE BAUTISTA SIVE 4 [facility] METABOLIC INC INC PANEL RADEX 91140 MICHELE BAUTISTA ELBOW 4 [facility] COMPLETE INC INC MINIMUM [address] UPPER 89481 DELROY DELROY EXTREMITY 4 GAVINO GAVINO W/O CONTRAST MATERIAL MRI ANY 93210 DELRO[facility] DELROY JT UPPER 4 GAVINO GAVINO EXTREMITY W/[place] [address] PETTEY PETTEY RADIAL 4 JAM JAM HEAD/NECK FX W/O MANIPULAT ION RADEX 65199 DELROY DELROY ELBOW 4 GAVINO GAVINO COMPLETE MINIMUM 3 VIEWS RADEX 86361 DELROY DELROY HAND 4 GAVINO GAVINO MINIMUM 3 VIEWS RADEX 65165 DELROY DELROY HUMERUS 4 GAVINO GAVINO MINIMUM 2 VIEWS RADEX 78733 DELROY DELROY FOREARM 2 4 GAVINO GAVINO VIEWS THERAPEUT 46942 VINCE CLARKE IC 4 RADHA RADHA PROPHYLAC TIC/DX INJECTION SUBQ/IM INJECTION J3301 VINCE SPIVEYHINA 4 RADHA RADHA TRIAMCINO LONE ACETONIDE NOS 10 MG URNLS DIP 55318 MICHELE MICHELE 4 [facility] STICK/TAB INC INC LET REAGENT AUTO MICROSCOP Y URINE 27589 MICHELE MICHELE 4 [facility] TEST INC INC VISUAL COLOR CMPRSN METHS BLOOD 25646 MICHELE BAUTISTA COUNT 4 [facility] COMPLETE INC INC AUTO&AUTO DIFRNTL WBC CULTURE 38072 MICHELE BAUTISTA BACTERIAL 4 [facility] INC [place] [address] MICHELE BAUTISTA ABDOMEN & 4 [facility] PELVIS INC INC W/O CONTRAST MATERIAL COMPREHEN 05484 MICHELE BAUTISTA SIVE 4 [facility] METABOLIC INC INC PANEL URNLS DIP 54947 LUNA LUNA 4 MOSHE MOSHE STICK/TAB LET RGNT NON-AUTO W/O MICRSCP CULTURE 39768 COMBINED COMBINED BACTERIAL 4 PHYSICIAN PHYSICIAN S LA S LA [place]TT[place] [address] MICHELE BAUTISTA THYROID 4 [facility] STIMULATI INC INC NG HORMONE TSH BLOOD 24064 MICHELE BAUTISTA COUNT 4 [facility] COMPLETE INC INC AUTO&AUTO DIFRNTL WBC DRUG 76290 MICHELE BAUTISTA ASSAY 4 [facility] CARBAMAZE INC INC PINE TOTAL COMPREHEN 58095 MICHELE BAUTISTA SIVE 4 [facility] METABOLIC INC INC PANEL LEVONORGE J7302 WOMEN'S NUR, STREL-RLS 0 [facility] J E [facility] INTRAUTER N [place] CNTRACPT [facility] 52 MG INSERTION 21728 WOMEN'S NUR, 0 [facility]ALTH [facility] J INTRAUTER CLINIC OF INE DEVICE [place] IUD PLLC URINE 97657 WOMEN'S NUR, 0 [facility] J TEST CLINIC OF VISUAL COLOR [place] CMPRSN PLLC METHS CYTP C/V 43366 PATHOLOGY PATHOLOGY AUTO THIN 0 & & LYR CYTOLOGY CYTOLOGY PREPJ SCR LAB LAB MNL RESCR PHYS ADMINISTR 9948 MICHELE BAUTISTA ATION OF 0 [facility] MEASLES-M INC INC [facility] RADHA DAY GROUP MANAGEMEN PCC T 30 MIN/< SBSQ 09453 [facility] 0 PHYSICIAN RADHA CARE/DAY GROUP 35 PCC MINUTES SUBQ 92763 [facility] 0 [facility], CARE PER INTERNAL [facility] E/M MED NORMAL NEURAXIAL 23557 [facility]ORT[facility], LABOR 0 ANESTH AARON L ANALG/ANE OF THE S PLND [place] VAGINAL DELIVERY VAGINAL 62009 [facility] DELIVERY 0 PHYSICIAN RADHA ONLY GROUP PCC 1ST 41970 [place] 0 [facility], [facility] MED CARE PER DAY NML NB OTHER 7359 MICHELE BAUTISTA MANUALLY 0 [facility] ASSISTED INC INC DELIVERY IADNA 02763 Rachel ALVARADO, Rachel STREPTOCO 0 JENNY Gomez CCUS PSC GROUP A [facility] G0378 MICHELE BAUTISTA OBSERVATI 0 [facility] ON INC INC SERVICE PER HOUR OBSERVATI 58359 WOMEN'S BOOM ON CARE 0 HEALTH AYAH Alvarado DISCHARGE CLINIC OF MANAGEMEN [place] T [facility] 78257 MICHELE BAUTISTA NONSTRESS 0 [facility] TEST INC INC 96638 MICHELE BAUTISTA NONSTRESS 0 [facility] TEST INC INC 86686 YADI BOYLE 0 MEDICAL [place] IMAGING PROFILE ASSOCIATE W/O S NON-STRES S TESTING INITIAL 16565 WOMEN'S BOOM, OBSERVATI 0 HEALTH AYAH J ON CLINIC OF CARE/DAY 50 [place] MINUTES PLLC DOPPLER 68077 INDY POTTS VELOCIMET 0 MEDICAL [place]AP[place] RY IMAGING UMBILICAL ASSOCIATE ARTERY S CULTURE 31195 COMBINED COMBINED BACTERIAL 0 PHYSICIAN PHYSICIAN S LAB S LAB QUANTTATI VE COLONY COUNT URINE CUL BACT 66231 COMBINED COMBINED XCPT 0 PHYSICIAN PHYSICIAN URINE S LAB S LAB BLOOD/STO OL AEROBIC ISOL OBSERVATI 29060 WOMEN'S NUR, ON CARE 0 JD Alvarado DISCHARGE CLINIC OF MANAGEPAT KIM T [facility] G0378 MICHELE BAUTISTA OBSERVATI 0 [facility] ON INC INC SERVICE PER HOUR THERAPEUT 71973 MICHELE BAUTISTA IC 0 [facility] PROPHYLAC INC INC TIC/DX INJECTION SUBQ/IM THERAPEUT 01131 MICHELE BAUTISTA IC 0 [facility] PROPHYLAC INC INC TIC/[place] INJECTION SUBQ/[place] [address] MICHELE BAUTISTA INFUSION 0 [facility] HYDRATION INC INC INITIAL 31 MIN-[facility] G[facility]8 MICHELE BAUTISTA OBSERVATI 0 [facility] ON INC INC SERVICE PER HOUR FTL 18767 MICHELE BAUTISTA FIBRONECT 0 [facility] IN INC INC CERVICOVA G SECRETION S SEMI-PAMELA BLOOD 86087 MICHELE BAUTISTA COUNT 0 [facility] COMPLETE INC INC AUTO&AUTO DIFRNTL WBC INITIAL 01533 WOMEN'S BOOM, OBSERVATI 0 JD Alvarado ON CLINIC OF CARE/DAY 30 [place] MINUTES PLLC 67436 MICHELE BAUTISTA NONSTRESS 0 [facility] TEST INC INC INITIAL 56610 [facility] OBSERVATI 0 PHYSICIAN RADHA ON GROUP CARE/DAY PCC 70 MINUTES CULTURE 71494 MICHELE BAUTISTA BACTERIAL 0 [facility] INC INC QUANTTATI VE COLONY COUNT URINE URNLS DIP 38727 MIC[facility]LE BAUTISTA 0 [facility] STICK/TAB INC INC LET REAGENT AUTO MICROSCOP Y BLOOD 75783 MICHELE BAUTISTA COUNT 0 [facility] COMPLETE INC INC AUTO&AUTO DIFRNTL WBC 79953 WOMEN'S BOOM, BIOPHYSIC 0 JD Alvarado AL CLINIC OF PROFILE W/O [place] NON-STRES [facility] [place] TESTING [place] PREG 93340 WOMEN'S NUR, UTERUS 0 JD Alvarado REAL TIME CLINIC OF F/U TRNSABDL [place] PER FETUS [facility] DOPPLER 43614 WOMEN'S NUR, VELOCIMET 0 HEALTH AYAH J RY CLINIC OF UMBILICAL ARTERY [place] [facility] [place] [address] MICHELE BAUTISTA ESTRIOL 9 [facility] INC INC ALPHA-FET 09172 MICHELE BAUTISTA OPROTEIN 9 [facility] SERUM INC INC GONADOTRO 19775 MICHELE BAUTISTA PIN 9 [facility] CHORIONIC INC INC QUANTITAT [place]ARD [place] PREG 09859 WOMEN'S NUR, UTERUS 9 HEALTH AYAH J REAL TIME CLINIC OF W/IMAGE DCMTN [place] TRANSVAG [facility] CYTP C/V 07607 PATHOLOGY PATHOLOGY AUTO THIN 9 & & LYR CYTOLOGY CYTOLOGY PREPJ SCR LAB LAB MNL RESCR PHYS IADNA 09714 PATHOLOGY PATHOLOGY NEISSERIA 9 & & CYTOLOGY CYTOLOGY GONORRHOE LAB LAB AE AMPLIFIED PROBE TQ IADNA 14629 PATHOLOGY PATHOLOGY CHLAMYDIA 9 & & CYTOLOGY CYTOLOGY TRACHOMAT LAB LAB IS AMPLIFIED PROBE TQ Encounters Encounter Start End Date Code Location Performer Type Date OFFICE 40151 [facility] 7 7 [facility] T VISIT INTERNAL 15 MED MINUTES OFFICE 78644 GARCÍA WHITEHEAD OUTPATIEN 7 7 MEDICINE T NEW 30 OF MINUTES [facility] PERIODIC 35462 [facility] 7 7 [facility] MED EST HLTH DEPT HLTH DEPT PATIENT ADALBERTO ADALBERTO 18-39 YRS OFFICE 17439 [facility] 7 7 [facility] T VISIT INTERNAL 25 MED MINUTES OFFICE 80743 ANKUSH PENNY OUTPATIEN 7 7 HEALTH T VISIT MEDICAL 15 [facility] SABIANIST - 7 7 HEALTH INPATIENT [facility] S[facility]IANIST - 7 7 HEALTH OUTPATIEN [facility] SABIANIST - 7 7 HEALTH OUTPATIEN [facility] OFFICE 96059 ROHITH CORDEROCKER OUTPATIEN 7 7 WOMENS T VISIT HEALTH 15 PLLC MINUTES OFFICE 18562 [place] OUTPATIEN 7 7 WOMENS T VISIT HEALTH 15 PLLC MINUTES OFFICE 16280 [facility] RUDD OUTPATIEN 7 7 VALLEY T VISIT INTERNAL 15 MED MINUTES OFFICE 44173 [place] OUTPATIEN 7 7 WOMENS T VISIT HEALTH 15 PLLC MINUTES HOSPITAL S[facility]IANIST - 7 7 [facility] 99281 ROHITH MARIE OUTPATIEN 7 7 WOMENS T VISIT HEALTH 15 PLLC MINUTES HOSPITAL SABIANIST - 6 6 [facility] 01351 ROHITH PUGH CRIS OUTPATIEN 6 6 WOMENS T VISIT HEALTH 15 PLLC MINUTES HOSPITAL SABIANIST - 6 6 [facility] 10782 SABIANIST HIETT CONSULTAT 6 6 HEALTH ION MEDICAL NEW/ESTAB GROUP PATIENT 15 MIN OFFICE 08022 SABIANIST BRAULIO OUTPATIEN 6 6 HEALTH BAR T VISIT MEDICAL 15 GROUP MINUTES OFFICE 82471 SABIANIST BRAULIO OUTPATIEN 6 6 HEALTH BAR T VISIT MEDICAL 15 GROUP MINUTES OFFICE 66770 [facility] 6 6 VALLEY RADHA T VISIT INTERNAL 15 MED MINUTES HOSPITAL SABIANIST - 6 6 HEALTH OUTPATIEN [place] T OFFICE 56653 SABIANIST BRAULIO OUTPATIEN 6 6 HEALTH BAR T VISIT MEDICAL 15 GROUP MINUTES OFFICE 86892 SABIANIST JEANETTE CONSULTAT 6 6 HEALTH ION MEDICAL NEW/ESTAB GROUP PATIENT 30 MIN HOSPITAL SABIANIST - 6 6 HEALTH OUTPATIEN [place] T OFFICE 31091 ANKUSH RAMSEY OUTPATIEN 6 6 HEALTH BAR T NEW 45 MEDICAL MINUTES [facility]PITAL MICHELE - 6 6 [facility] OUTPATIEN INC T OFFICE 27315 [facility] T VISIT TH DEPT TH DEPT 10 ADALBERTO ADALBERTO MINUTES OFFICE 37434 VANESA HUNTER OUTPATIEN 6 6 YESI HATCH T VISIT 15 MINUTES OFFICE 05065 VANESA HUNTER OUTPATIEN 6 6 YESI HATCH T VISIT 15 MINUTES OFFICE 07148 [facility] 6 6 [facility] T VISIT INTERNAL 15 MED MINUTES OFFICE 90576 [facility] 6 6 [facility] T VISIT INTERNAL 25 MED MINUTES OFFICE 82626 VANESA HUNTER OUTPATIEN 6 6 YESI HATCH T VISIT 15 MINUTES HOSPITAL MICHELE - 6 6 [facility] OUTPATIEN INC T EMERGENCY 97190 JEFFERY HONG [facility] 6 6 PHYSICIAN DEPARTMEN S, PLLC T VISIT HIGH/URGE NT SEVERITY EMERGENCY 13629 MIC[facility]LE 6 6 [facility] DEPARTMEN INC T VISIT LOW/MODER SEVERITY OFFICE 82120 [facility] 5 5 [facility] T VISIT INTERNAL 15 MED MINUTES HOSPITAL MICHELE - 5 5 [facility] OUTPATIEN INC T EMERGENCY 13893 JEFFERY CARR 5 5 PHYSICIAN DEPARTMEN S, PLLC T VISIT HIGH/URGE NT SEVERITY EMERGENCY 18756 MIC[facility]LE 5 5 [facility] DEPARTMEN INC T VISIT MODERATE SEVERITY HOSPITAL MICHELE - 5 5 [facility] OUTPATIEN INC T EMERGENCY 16455 MICHELE 5 5 [facility] DEPARTMEN INC T VISIT LOW/MODER SEVERITY OFFICE 76838 [facility] 5 5 [facility] RADHA T VISIT INTERNAL 15 MED MINUTES OFFICE 25942 YESI ELSA YESI ELSA OUTPATIEN 5 5 T VISIT 15 MINUTES OFFICE 10728 YESI ELSA YESI ELSA OUTPATIEN 5 5 T VISIT 15 MINUTES OFFICE 30762 [facility] T VISIT [facility] DEPT [facility] DEPT 10 ADALBERTO ADALBERTO MINUTES EMERGENCY 89900 MICHELE BRITNI 5 5 [facility] T VISIT P MODERATE SEVERITY HOSPITAL MICHELE - 5 5 [facility] OUTPATIEN INC T OFFICE 55267 [facility] 5 5 [facility] RADHA T VISIT INTERNAL 15 MED MINUTES HOSPITAL MICHELE - 5 5 [facility] OUTPATIEN INC T EMERGENCY 58479 MICHELE 5 5 [facility] DEPARTMEN INC T VISIT MODERATE SEVERITY HOSPITAL MIC[facility]LE - 5 5 [facility] OUTPATIEN INC T HOSPITAL MIC[facility]LE - 5 5 [facility] OUTPATIEN INC T OFFICE 81352 YESI ELSA YESI ELSA OUTPATIEN 5 5 T VISIT 15 MINUTES OFFICE 13735 YESI ELSA YESI ELSA CONSULTAT 5 5 ION NEW/ESTAB PATIENT 40 MIN PERIODIC 25188 [facility] E MED EST [facility] DEPT [facility] DEPT PATIENT ADALBERTO ADALBERTO 18-39 YRS OFFICE 05880 [facility] 4 [facility] T VISIT [facility] DEPT [facility] DEPT 15 ADALBERTO ADALBERTO MINUTES OFFICE 91041 [facility] 4 [facility] T VISIT [facility] DEPT [facility] DEPT 15 ADALBERTO ADALBERTO MINUTES EMERGENCY 61286 MICHELE 4 4 [facility] DEPARTMEN INC T VISIT LOW/MODER SEVERITY HOSPITAL MICHELE - 4 4 [facility] OUTPATIEN INC T EMERGENCY 80507 BRITNI RYDER 4 4 MARCELL[facility]CELL[facility] DEPARTMEN T VISIT HIGH/URGE NT SEVERITY HOSPITAL MICHELE - 4 4 [facility] OUTPATIEN INC T HOSPITAL MICHELE - 4 4 [facility] OUTPATIEN INC T HOSPITAL MICHELE - 4 4 [facility] OUTPATIEN INC T EMERGENCY 55730 MICHELE 4 4 [facility] DEPARTMEN INC T VISIT LOW/MODER SEVERITY EMERGENCY 85077 BRITNI RYDER 4 4 [facility] DEPARTMEN T VISIT HIGH/URGE NT SEVERITY OFFICE 17745 VINCE CLARKE OUTPATIEN 4 4 [facility] T VISIT 25 MINUTES EMERGENCY 05767 BRITNI RYDER DEPT 4 4 [facility] MARCELLO VISIT HIGH SEVERITY& THREAT [facility] HOSPITAL MICHELE - 4 4 [facility] OUTPATIEN INC T EMERGENCY 69037 MICHELE 4 4 [facility] DEPARTMEN INC T VISIT LOW/MODER SEVERITY OFFICE 40552 LUNA LUNA OUTPATIEN 4 4 [facility] T VISIT 10 MINUTES HOSPITAL MICHELE - 4 4 [facility] OUTPATIEN INC T OFFICE 85555 WOMEN'S NUR, OUTPATIEN 0 0 HEALTH AYAH J T VISIT CLINIC OF 25 MINUTES [facility] OFFICE 65473 WOMEN'S NUR, OUTPATIEN 0 0 HEALTH AYAH J T VISIT CLINIC OF 15 MINUTES [facility] MICHELE - 0 0 [facility] INPATIENT INC OFFICE 49802 Rachel ODELL OUTPATIEN 0 0 JENNY Gomez T VISIT [facility] 15 MINUTES OFFICE 78658 WOMEN'S NUR, OUTPATIEN 0 0 HEALTH AYAH J T VISIT CLINIC OF 15 MINUTES [facility] MICHELE - 0 0 [facility] OUTPATIEN ON LICENSE OF [facility] OFFICE 52680 WOMEN'S NUR, OUTPATIEN 0 0 HEALTH AYAH J T VISIT CLINIC OF 15 MINUTES [facility] MICHELE - 0 0 [facility] OUTPATIEN ON LICENSE OF [facility] HOSPITAL MICHELE - 0 0 [facility] OUTPATIEN ON LICENSE OF [facility] OFFICE 84809 WOMEN'S NUR, OUTPATIEN 0 0 HEALTH AYAH J T VISIT CLINIC OF 15 MINUTES [facility] OFFICE 23929 WOMEN'S NUR, OUTPATIEN 0 0 HEALTH AYAH J T VISIT CLINIC OF 15 MINUTES [facility] MICHELE - 0 0 [facility] OFFICE 66197 WOMEN'S NUR, OUTPATIEN 0 0 HEALTH AYAH J T VISIT CLINIC OF 15 MINUTES [facility] OFFICE 53680 WOMEN'S NUR, OUTPATIEN 0 0 HEALTH AYAH J T VISIT CLINIC OF 15 MINUTES [facility] OFFICE 39398 WOMEN'S NUR, OUTPATIEN 0 0 HEALTH AYAH J T VISIT CLINIC OF 15 MINUTES [facility] MICHELE - 9 9 [facility] OFFICE 30359 WOMEN'S NUR, OUTPATIEN 9 9 HEALTH AYAH J T VISIT CLINIC OF 15 MINUTES [facility] OFFICE 22252 WOMEN'S NUR, OUTPATIEN 9 9 HEALTH AYAH J T VISIT CLINIC OF 15 MINUTES [facility] EMERGENCY 62977 MIC[facility]LE 9 9 [facility] V[facility]/M INOR PROB EMERGENCY 22297 BEATRICE BEDOYA, 9 9 [facility] T VISIT HIGH/URGE ASSOCIATE [facility] MICHELE - 9 9 [facility]
--- OUTSIDE RECORDS SUMMARY | 2017-07-04 14:43 | External Medical Summary Rpt | CCD ---
Demographics Preferred Language Wallisian Marital Status Unknown Jewish Affiliation Unknown Race Unknown Ethnic Group Unknown Author Author , TYRELL SANTILLAN Address Unknown Phone Immunization No patient found.
--- OUTSIDE RECORDS SUMMARY | 2017-07-04 14:43 | External Medical Summary Rpt ---
Author Author [employer], [employer] Organization [employer] Address Unknown Phone Unavailable Results CHLAMYDIA AND GONORRHEA TESTING Observa Value Referen Units Interpr Notes Date tion ce etation Range COLLECT ANUPAM No No No No Feb 16 OR informa informa informa informa 2017 tion in tion in tion in tion in 8:30 AM source source source source data data data data ETHNICI WHITE, No No No No Feb 16 TY NON-HIS informa informa informa informa 2017 PANIC tion in tion in tion in tion in 8:30 AM source source source source data data data data KIT 11-30-2 No No No No Feb 16 EXPIRAT 017 informa informa informa informa 2017 ION tion in tion in tion in tion in 8:30 AM DATE source source source source data data data data SYMPTOM NO No No No No Feb 16 S informa informa informa informa 2017 tion in tion in tion in tion in 8:30 AM source source source source data data data data REASON REVISIT No No No No Feb 16 FOR /ANNUAL informa informa informa informa 2017 REQUEST FAMILY tion in tion in tion in tion in 8:30 AM source source source source PLANNIN data data data data G VISIT SPECIME URINE No No No No Feb 16 N informa informa informa informa 2017 SOURCE tion in tion in tion in tion in 8:30 AM source source source source data data data data PREGNAN NO No No No No Feb 16 T informa informa informa informa 2017 tion in tion in tion in tion in 8:30 AM source source source source data data data data CHART N/A No No No No Feb 16 NUMBER informa informa informa informa 2017 tion in tion in tion in tion in 8:30 AM source source source source data data data data Chlamyd NEGATIV No No No NEGATIV Feb 16 ia E informa informa informa E 2017 trachom tion in tion in tion in RESULT= 8:30 AM atis source source source WITHIN rRNA data data data NORMAL [Presen ce] in LIMITSP Unspeci OSITIVE fied specime RESULT= n by Probe & ABNORMA target LEQUIVO RHONA amplifi RESULT= cation method INDETER MINATEU NSATISF ACTORY RESULT= INVALID Neisser NEGATIV No No No NEGATIV Feb 16 ia E informa informa informa E 2017 gonorrh tion in tion in tion in RESULT= 8:30 AM oeae source source source WITHIN rRNA data data data NORMAL [Presen ce] in LIMITSP Unspeci OSITIVE fied specime RESULT= n by Probe & ABNORMA target LEQUIVO RHONA amplifi RESULT= cation method INDETER MINATEU NSATISF ACTORY RESULT= INVALID THE APTIMA COMBO 2 ASSAY IS NOT INTENDE D FOR THE EVALUAT ION OF SUSPECT EDSEXUA L ABUSE OR FOR OTHER MEDICO- LEGAL INDICAT IONS. FOR THOSE PATIENT S FORWHOM A FALSE POSITIV E RESULT MAY HAVE ADVERSE PSYCHO- SOCIAL IMPACT, [facility] MM[facility] RETESTI NG.\.br \This report contain s patient informa tion that must be protect ed in accorda nce with the Health Insuran ce Portabi lity and Account ability Act. CHLAMYDIA AND GONORRHEA TESTING Observa Value Referen Units Interpr Notes Date tion ce etation Range COLLECT ANUPAM No No No No Feb 16 OR informa informa informa informa 2017 tion in tion in tion in tion in 8:30 AM source source source source data data data data ETHNICI WHITE, No No No No Feb 16 TY NON-HIS informa informa informa informa 2017 PANIC tion in tion in tion in tion in 8:30 AM source source source source data data data data KIT 11-30-2 No No No No Feb 16 EXPIRAT 017 informa informa informa informa 2017 ION tion in tion in tion in tion in 8:30 AM DATE source source source source data data data data SYMPTOM NO No No No No Feb 16 S informa informa informa informa 2017 tion in tion in tion in tion in 8:30 AM source source source source data data data data REASON REVISIT No No No No Feb 16 FOR /ANNUAL informa informa informa informa 2017 REQUEST FAMILY tion in tion in tion in tion in 8:30 AM source source source source PLANNIN data data data data G VISIT SPECIME URINE No No No No Feb 16 N informa informa informa informa 2017 SOURCE tion in tion in tion in tion in 8:30 AM source source source source data data data data PREGNAN NO No No No No Feb 16 T informa informa informa informa 2017 tion in tion in tion in tion in 8:30 AM source source source source data data data data CHART N/A No No No No Feb 16 NUMBER informa informa informa informa 2017 tion in tion in tion in tion in 8:30 AM source source source source data data data data Chlamyd Pending No No No No Feb 16 ia informa informa informa informa 2017 trachom tion in tion in tion in tion in 8:30 AM atis source source source source rRNA data data data data [Presen ce] in Unspeci fied specime n by Probe & target amplifi cation method Neisser Pending No No No \.br\Feb 16 ia informa informa informa is 2017 gonorrh tion in tion in tion in report 8:30 AM oeae source source source contain rRNA data data data s [Presen patient ce] in Unspeci informa fied tion specime that n by must be Probe & target protect ed in amplifi accorda cation nce method with the Health Insuran ce Portabi lity and Account ability Act. CHLAMYDIA AND GONORRHEA TESTING Observa Value Referen Units Interpr Notes Date tion ce etation Range COLLECT A. No No No No Aug 28 OR SOFYA, informa informa informa informa 2014 RN tion in tion in tion in tion in 3:00 PM source source source source data data data data ETHNICI WHITE, No No No No Aug 28 TY NON-HIS informa informa informa informa 2014 PANIC tion in tion in tion in tion in 3:00 PM source source source source data data data data KIT No No No No Aug 28 EXPIRAT 5 informa informa informa informa 2014 ION tion in tion in tion in tion in 3:00 PM DATE source source source source data data data data SYMPTOM NO No No No No Aug 28 S informa informa informa informa 2014 tion in tion in tion in tion in 3:00 PM source source source source data data data data REASON REVISIT No No No No Aug 28 FOR /ANNUAL informa informa informa informa 2014 REQUEST FAMILY tion in tion in tion in tion in 3:00 PM source source source source PLANNIN data data data data G VISIT SPECIME FEMALE No No No No Aug 28 N ENDOCER informa informa informa informa 2014 SOURCE VICAL tion in tion in tion in tion in 3:00 PM source source source source data data data data PREGNAN NO No No No No Aug 28 T informa informa informa informa 2014 tion in tion in tion in tion in 3:00 PM source source source source data data data data CHART [id number]- No No No No Aug 28 NUMBER [id number] informa informa informa informa 2014 tion in tion in tion in tion in 3:00 PM source source source source data data data data Chlamyd NEGATIV No No No NEGATIV Aug 28 ia E informa informa informa E 2014 trachom tion in tion in tion in RESULT= 3:00 PM atis source source source WITHIN rRNA data data data NORMAL [Presen ce] in LIMITSP Unspeci OSITIVE fied specime RESULT= n by Probe & ABNORMA target LEQUIVO RHONA amplifi RESULT= cation method INDETER MINATEU NSATISF ACTORY RESULT= INVALID Neisser NEGATIV No No No NEGATIV Aug 28 ia E informa informa informa E 2014 gonorrh tion in tion in tion in RESULT= 3:00 PM oeae source source source WITHIN rRNA data data data NORMAL [Presen ce] in LIMITSP Unspeci OSITIVE fied specime RESULT= n by Probe & ABNORMA target LEQUIVO RHONA amplifi RESULT= cation method INDETER MINATEU NSATISF ACTORY RESULT= INVALID THE APTIMA COMBO 2 ASSAY IS NOT INTENDE D FOR THE EVALUAT ION OF SUSPECT EDSEXUA L ABUSE OR FOR OTHER MEDICO- LEGAL INDICAT IONS. FOR THOSE PATIENT S FORWHOM A FALSE POSITIV E RESULT MAY HAVE ADVERSE PSYCHO- SOCIAL IMPACT, THE [facility] MMENDS RETESTI NG.\.br \This report contain s patient informa tion that must be protect ed in accorda nce with the Health Insuran ce Drew emerson and Account ability Act. CHLAMYDIA AND GONORRHEA TESTING Observa Value Referen Units Interpr Notes Date tion ce etation Range COLLECT A. No No No No Aug 28 OR SOFYA, informa informa informa informa 2014 RN tion in tion in tion in tion in 3:00 PM source source source source data data data data ETHNICI WHITE, No No No No Aug 28 TY NON-HIS informa informa informa informa 2014 PANIC tion in tion in tion in tion in 3:00 PM source source source source data data data data KIT No No No No Aug 28 EXPIRAT 5 informa informa informa informa 2014 ION tion in tion in tion in tion in 3:00 PM DATE source source source source data data data data SYMPTOM NO No No No No Aug 28 S informa informa informa informa 2014 tion in tion in tion in tion in 3:00 PM source source source source data data data data REASON REVISIT No No No No Aug 28 FOR /ANNUAL informa informa informa informa 2014 REQUEST FAMILY tion in tion in tion in tion in 3:00 PM source source source source PLANNIN data data data data G VISIT SPECIME FEMALE No No No No Aug 28 N ENDOCER informa informa informa informa 2014 SOURCE VICAL tion in tion in tion in tion in 3:00 PM source source source source data data data data PREGNAN NO No No No No Aug 28 T informa informa informa informa 2014 tion in tion in tion in tion in 3:00 PM source source source source data data data data CHART [id number]- No No No No Aug 28 NUMBER [id number] informa informa informa informa 2014 tion in tion in tion in tion in 3:00 PM source source source source data data data data Chlamyd Pending No No No No Aug 28 ia informa informa informa informa 2014 trachom tion in tion in tion in tion in 3:00 PM atis source source source source rRNA data data data data [Presen ce] in Unspeci fied specime n by Probe & target amplifi cation method Neisser Pending No No No \.br\Aug 28 ia informa informa informa is 2014 gonorrh tion in tion in tion in report 3:00 PM oeae source source source contain rRNA data data data s [Presen patient ce] in Unspeci informa fied tion specime that n by must be Probe & target protect ed in amplifi accorda cation nce method with the Health Insuran ce Portabi lity and Account ability Act. CHLAMYDIA AND GONORRHEA TESTING Observa Value Referen Units Interpr Notes Date tion ce etation Range COLLECT NA No No No No Oct 13 OR informa informa informa informa 2012 tion in tion in tion in tion in 11:33 source source source source AM data data data data ETHNICI WHITE, No No No No Oct 13 TY NON-HIS informa informa informa informa 2012 PANIC tion in tion in tion in tion in 11:33 source source source source AM data data data data KIT --1 No No No No Oct 13 EXPIRAT 2 informa informa informa informa 2012 ION tion in tion in tion in tion in 11:33 DATE source source source source AM data data data data SYMPTOM NO No No No No Oct 13 S informa informa informa informa 2012 tion in tion in tion in tion in 11:33 source source source source AM data data data data REASON REVISIT No No No No Oct 13 FOR /ANNUAL informa informa informa informa 2012 REQUEST FAMILY tion in tion in tion in tion in 11:33 source source source source AM PLANNIN data data data data G VISIT SPECIME URINE No No No No Oct 13 N informa informa informa informa 2012 SOURCE tion in tion in tion in tion in 11:33 source source source source AM data data data data PREGNAN NO No No No No Oct 13 T informa informa informa informa 2012 tion in tion in tion in tion in 11:33 source source source source AM data data data data CHART NA No No No No Oct 13 NUMBER informa informa informa informa 2012 tion in tion in tion in tion in 11:33 source source source source AM data data data data [place]lamyd NEGATIV No No No NEGATIV Oct 13 ia E informa informa informa E 2012 trachom tion in tion in tion in RESULT= 11:33 atis source source source WITHIN AM rRNA data data data NORMAL [Presen ce] in LIMITSP Unspeci OSITIVE fied specime RESULT= n by Probe & ABNORMA target LEQUIVO RHONA amplifi RESULT= cation method INDETER MINATEU NSATISF ACTORY RESULT= INVALID Neisser NEGATIV No No No NEGATIV Oct 13 ia E informa informa informa E 2012 gonorrh tion in tion in tion in RESULT= 11:33 oeae source source source WITHIN AM rRNA data data data NORMAL [Presen ce] in LIMITSP Unspeci OSITIVE fied specime RESULT= n by Probe & ABNORMA target LEQUIVO RHONA amplifi RESULT= cation method INDETER MINATEU NSATISF ACTORY RESULT= INVALID EFFECTI VE NOVEMBE R 2009: THE APTIMA COMBO 2 NUCLEIC ACIDAMP LIFICAT ION ASSAY IS NOT INTENDE D FOR THE EVALUAT ION OFSUSPE CTED SEXUAL ABUSE OR FOR OTHER MEDICO- LEGAL INDICAT IONS.FA LSE POSITIV E RESULTS ARE POSSIBL E.\.br\ This report contain s patient informa tion that must be protect ed in accorda nce with the Health Insuran ce Portabi lity and Account ability Act. CHLAMYDIA AND GONORRHEA TESTING Observa Value Referen Units Interpr Notes Date tion ce etation Range COLLECT NA No No No No Oct 13 OR informa informa informa informa 2012 tion in tion in tion in tion in 11:33 source source source source AM data data data data ETHNICI WHITE, No No No No Oct 13 TY NON-HIS informa informa informa informa 2012 PANIC tion in tion in tion in tion in 11:33 source source source source AM data data data data KIT -- No No No No Oct 13 EXPIRAT 2 informa informa informa informa 2012 ION tion in tion in tion in tion in 11:33 DATE source source source source AM data data data data SYMPTOM NO No No No No Oct 13 S informa informa informa informa 2012 tion in tion in tion in tion in 11:33 source source source source AM data data data data REASON REVISIT No No No No Oct 13 FOR /ANNUAL informa informa informa informa 2012 REQUEST FAMILY tion in tion in tion in tion in 11:33 source source source source AM PLANNIN data data data data G VISIT SPECIME URINE No No No No Oct 13 N informa informa informa informa 2012 SOURCE tion in tion in tion in tion in 11:33 source source source source AM data data data data PREGNAN NO No No No No Oct 13 T informa informa informa informa 2012 tion in tion in tion in tion in 11:33 source source source source AM data data data data CHART NA No No No No Oct 13 NUMBER informa informa informa informa 2012 tion in tion in tion in tion in 11:33 source source source source AM data data data data Chlamyd Pending No No No No Oct 13 ia informa informa informa informa 2012 trachom tion in tion in tion in tion in 11:33 atis source source source source AM rRNA data data data data [Presen ce] in Unspeci fied specime n by Probe & target amplifi cation method Neisser Pending No No No \.br\Oct 13 ia informa informa informa is 2012 gonorrh tion in tion in tion in report 11:33 oeae source source source contain AM rRNA data data data s [Presen patient ce] in Unspeci informa fied tion specime that n by must be Probe & target protect ed in amplifi accorda cation nce method with the Health Insuran ce Radhaabi lity and Account ability Act.
--- OUTSIDE RECORDS SUMMARY | 2017-07-04 14:43 | External Medical Summary Rpt | CCD ---
Demographics Preferred Language [place] Marital Status Unknown Denominational Affiliation Unknown Race Unknown Ethnic Group Unknown Author Author , TYRELL SANTILLAN Address Unknown Phone Immunization No patient found.
--- OUTSIDE RECORDS SUMMARY | 2017-07-04 14:43 | External Medical Summary Rpt ---
[...] MAY HAVE ADVERSE PSYCHO- SOCIAL IMPACT, [facility].\.br \This report contain s [...]
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
[2017-07-04 14:49] LABS: URINE BILIRUBIN - DIPSTICK NEGATIVE (NEG); URINE BLOOD LARGE (NEG)
[2017-07-04] MEDS ORDERED: BACTRIM DS 8001 TA1 PO (14:52)
[2017-07-04 14:56] VITALS: BP 112/70
== END 2017-07-04 14:57 | disposition home or self-care (01) ==
LOC: UTC 14:22
PROVIDERS: Nurse Practitioner Family
DX: N39.0 Urinary tract infection, site not specified (principal); R56.9 Unspecified convulsions; Z88.8 Allergy status to other drugs, medicaments and biological substances

== ENCOUNTER 2017-07-31 06:51 | Emergency (ER) | payer SELFPAY ==
[~2017-07-31] VITALS: Ht 177.8 cm; Wt 111.1 kg
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
[2017-07-31 07:30] LABS: LYMPH # 1.8 K/mm3 (0.7-4.5); LYMPH % 28.6 % (10-50.0)
[2017-07-31 07:40] LABS: HEMOGLOBIN 12.4 g/dL (12.2-16.2)
--- OUTSIDE RECORDS SUMMARY | 2017-07-31 07:41 | External Medical Summary Rpt | CCD ---
Author Author , TYRELL Organization TYRELL Address Unknown Phone [email or web address] Purpose Continuity of Care Document - 10-13-2011 through 2016 Problems Code Diagnosis DOS Provider Status G40.909 EPILEPSY, UNSP, NOT INTRACTABLE , WITHOUT STATUS EPILEPTICUS J20.9 ACUTE BRONCHITIS, UNSPECIFIED K59.00 CONSTIPATIO N, UNSPECIFIED L02.91 CUTANEOUS ABSCESS, UNSPECIFIED M54.5 LOW BACK PAIN N13.30 UNSPECIFIED HYDRONEPHRO SIS N20.0 CALCULUS OF KIDNEY N39.0 URINARY TRACT INFECTION, SITE NOT SPECIFIED N83.209 UNSPECIFIED OVARIAN CYST, UNSPECIFIED SIDE S00.83XA CONTUSION OF OTHER PART OF HEAD, INITIAL ENCOUNTER S42.401A UNSP FRACTURE OF LOWER END OF RIGHT HUMERUS, INIT S52.123A DISP FX OF HEAD OF UNSP RADIUS, INIT FOR CLOS FX S53.409A UNSPECIFIED SPRAIN OF UNSPECIFIED ELBOW, INITIAL ENCOUNTER Results Labs Lab Lab Date Result Refere Interp Status Commen Order Detail nces retati t Range on Antibiotic sensitivity studies (07-06-2017 07:03) Ampicil 10-24-2 = 4 complet sheri 017 ug/ml ed suscept 07:03 ibility test by minimum inhibit ory concent ration Piperac 10-24-2 <= 4 complet illin/t 017 ug/ml ed azobact 07:03 am suscept ibility test by minimum inhibit ory concent ration Tobramy 10-24-2 <= 1 complet franki 017 ug/ml ed suscept 07:03 ibility test by minimum inhibit ory concent ration Trimeth 10-24-2 <= 20 complet oprim/s 017 ug/ml ed ulfamet 07:03 hoxazol e suscept ibility test by minimum inhibit ory concent ration Ampicil 10-24-2 <= 2 complet sheri/sul 017 ug/ml ed bactam 07:03 suscept ibility test by minimum inhibit ory concent ration Levoflo 10-24-2 <= 0.12 complet xacin 017 ug/ml ed suscept 07:03 ibility test by minimum inhibit ory concent ration Imipene 10-24-2 <= 0.25 complet m 017 ug/ml ed suscept 07:03 ibility test by minimum inhibit ory concent ration Gentami 10-24-2 <= 1 complet franki 017 ug/ml ed suscept 07:03 ibility test by minimum inhibit ory concent ration Nitrofu 10-24-2 <= 16 complet rantoin 017 ug/ml ed 07:03 suscept ibility test by minimum inhibit ory concent ration Cefepim 10-24-2 <= 1 complet e 017 ug/ml ed suscept 07:03 ibility test by minimum inhibit ory concent ration Ertapen 10-24-2 <= 0.5 complet em 017 ug/ml ed suscept 07:03 ibility test by minimum inhibit ory concent ration Extende 10-24-2 = ug/ml complet d 017 ed spectru 07:03 m beta lactama se (ESBL) produci ng bacteri a suscept ibility test by minimum inhibit ory Cefazol 10-24-2 <= 4 complet in 017 ug/ml ed suscept 07:03 ibility test by minimum inhibit ory concent ration Ceftria 10-24-2 <= 1 complet xone 017 ug/ml ed suscept 07:03 ibility test by minimum inhibit ory concent ration Ceftazi 10-24-2 <= 1 complet dime/po 017 ug/ml ed tassium 07:03 clavula rosa isela suscept ibility test by minimum inhibit ory concent ration Amoxici 10-24-2 <= 2 complet llin/cl 017 ug/ml ed avulana 07:03 te suscept ibility test by minimum inhibit ory concent ration Urine culture (07-04-2017 14:50) Urine [id number] complet culture 017 07 ed 14:50 Escheri arnaldo coli SCT EC ESCHERI ARNALDO COLI L Urinalysis by dipstick (07-04-2017 14:47) Urine 0.2 0.2 NEG complet urobili 017 L ed nogen 14:47 E.U./dL detecti on by test str Urine 07-04-2 POSITIV NEG complet nitrite 017 E ed 14:47 POSITIV detecti E L on by test strip Urine 07-04-2 LARGE NEG complet leukocy 017 LARGE L ed te 14:47 esteras e detecti on by au Urine 07-04-2 = 1.015 1.005-1 complet specifi 017 .030 ed c 14:47 gravity measure ment Urine 07-04-2 = 100 NEG complet protein 017 mg/dL ed 14:47 measure ment by automat ed t Urine 07-04-2 = 6.0 5.0-8.5 complet pH 017 ed 14:47 Urine 07-04-2 NEGATIV NEG complet ketones 017 E ed 14:47 NEGATIV detecti E L on by mg/dL automat ed olga Glucose 07-04- = NEG complet ur 017 NEGATIV ed test 14:47 E strip Urine 07-04-2 YELLOW YELLOW complet color 017 YELLOW ed 14:47 L Urine 07-04-2 LARGE NEG complet blood 017 LARGE L ed detecti 14:47 on Urine NEGATIV NEG complet total 017 E ed bilirub 14:47 NEGATIV in E L detecti on by test Urine 07-04-2 CLOUDY CLEAR complet appeara 017 CLOUDY ed nce 14:47 L determi nation Urinalysis macro (dipstick) panel in Urine (07-04-2017 14:47) Appeara 07-04-2 CLOUDY CLEAR complet nce of 017 ed Urine 14:47 Bilirub 07-04-2 NEGATIV NEG complet in 017 E ed [Presen 14:47 ce] in Urine by Test strip Erythro 2 LARGE NEG complet cytes 017 ed [Presen 14:47 ce] in Urine Color 07-04- YELLOW YELLOW complet of 017 ed Urine 14:47 Ketones 07-04-2 NEGATIV NEG complet 017 E ed [Presen 14:47 ce] in Urine by Automat ed test strip Leukocy 07-04-2 LARGE NEG complet te 017 ed esteras 14:47 e [Presen ce] in Urine by Automat ed test strip Nitrite 07-04-2 POSITIV NEG Abnorma complet 017 E l ed [Presen 14:47 ce] in Urine by Test strip Urobili 07-04-2 0.2 NEG complet nogen 017 ed [Presen 14:47 ce] in Urine by Test strip CHLAMYDIA AND GONORRHEA TESTING (02-16-2017 08:30) Chlamyd [...] 00 ed Bld 07:08 3 Auto Lymphoc 2.57 0.60-4. complet ytes # 017 10*3/mm 80 ed Bld 07:08 3 Auto Neutrop 4.95 1.50-8. complet hils # 017 10*3/mm 30 ed Bld 07:08 3 Auto Imm 0.1 % 0.0-0.6 complet Granulo 017 ed [...] Bld 017 .0 ed Auto 07:08 Hgb 03-01-2 10.2 11.5-15 complet Bld-mCn 017 g/dL .5 ed c 07:08 RBC # 03-01-2 3.20 3.89-5. complet Bld 017 10*6/mm 14 ed Auto 07:08 3 WBC 03-01-2 8.08 3.50-10 complet nRBC 017 10*3/mm .80 [...] be used for non-medical purposes such Bupreno [id number] Negativ complet rphine 017 09 e ed SerPl-m 03:22 Negativ Cnc e SCT Propoxy [id number] Negativ complet ph Ur 017 09 e ed Ql 03:22 Negativ e SCT Oxycodo [id number] Negativ complet ne Ur 017 09 e ed Ql Scn 03:22 Negativ e SCT Barbitu [id number] Negativ complet rates 017 09 e ed Ur Ql 03:22 Negativ Scn e SCT Methado [id number] Negativ complet ne Ur 017 09 e ed Ql Scn 03:22 Negativ e SCT Tricycl 0263662 Negativ complet ics Ur 017 09 e ed Ql Scn 03:22 Negativ e SCT Benzodi [id number] Negativ complet az Ur 017 09 e ed Ql Scn 03:22 Negativ e SCT Amphet+ [id number] Negativ complet Methamp 017 09 e ed het Ur 03:22 Negativ Ql e SCT Opiates [id number] Negativ complet Ur Ql 017 09 e ed 03:22 Negativ e SCT Ampheta 4043415 Negativ complet mines 017 09 e ed Ur Ql 03:22 Negativ e SCT Cocaine 2803915 Negativ complet Ur Ql 017 09 e ed 03:22 Negativ e SCT PCP Ur [id number] Negativ complet Ql Scn 017 09 e ed 03:22 Negativ e SCT Cannabi [id number] Negativ complet noids 017 09 e ed SerPl 03:22 Negativ Ql e SCT CBC (hemogram) Bld Auto (11-09-2016 13:09) Platele 231 150-450 complet t # Bld 017 10*3/mm ed Auto 13:09 3 PMV Bld 10.9 fL 6.0-12. complet Auto 017 0 ed 13:09 RDW RBC 46.6 fl 37.0-54 complet Auto 017 .0 ed 13:09 RDW RBC 13.6 % 11.3-14 complet 017 .5 ed Auto-Rt 13:09 o MCHC 34.8 32.0-36 complet RBC 017 g/dL .0 ed Auto-mC 13:09 nc MCH RBC 33.1 pg 27.0-31 complet Qn 017 .0 ed Auto 13:09 MCV RBC 95.1 fL 80.0-99 complet Auto 017 .0 ed 13:09 Hct VFr 34.8 % 34.5-44 complet Bld 017 .0 ed Auto 13:09 Hgb 12.1 11.5-15 complet Bld-mCn 017 g/dL .5 ed c 13:09 RBC # 11-09-2 3.66 3.89-5. complet Bld 017 10*6/mm 14 ed Auto 13:09 3 WBC 11-09- 7.69 3.50-10 complet nRBC 017 10*3/mm .80 ed cor # 13:09 3 Bld CBC (hemogram) Bld Auto (11-04-2016 13:25) Platele 199 150-450 complet t # Bld 017 10*3/mm ed Auto 13:25 3 PMV Bld 9.9 fL 6.0-12. complet Auto 017 0 ed 13:25 RDW RBC 11-04- 46.1 fl 37.0-54 complet Auto 017 .0 ed 13:25 RDW RBC 11-04-2 13.4 % 11.3-14 complet 017 .5 ed Auto-Rt 13:25 o MCHC 34.8 32.0-36 complet RBC 017 g/dL .0 ed Auto-mC 13:25 nc MCH RBC 33.0 pg 27.0-31 complet Qn 017 .0 ed Auto 13:25 MCV RBC 94.9 fL 80.0-99 complet Auto 017 .0 ed 13:25 Hct VFr 37.1 % 34.5-44 complet Bld 017 .0 ed Auto 13:25 Hgb 11-04-2 12.9 11.5-15 complet Bld-mCn 017 g/dL .5 ed c 13:25 RBC # 11-04-2 3.91 3.89-5. complet Bld 017 10*6/mm 14 ed Auto 13:25 3 WBC 11-04- 8.47 3.50-10 complet nRBC 017 10*3/mm .80 ed cor # 13:25 3 Bld Hgb F Bld Ql Kleih Betke (11-04-2016 13:25) Hgb F 2 [id number] NO complet Bld Ql 017 00 Not ed Kleih 13:25 detecte CELLS Jo d SCT SEEN Glucose 1h p 50 g Glc PO SerPl-mCnc (09-16-2016 09:57) Glucose 118 65-199 complet 1h p 017 mg/dL ed 100 g 09:57 Glc PO SerPl-m Cnc CBC (hemogram) Bld Auto (09-16-2016 09:57) Platele 214 150-450 complet t # Bld 017 10*3/mm ed Auto 09:57 3 PMV Bld 9.9 fL 6.0-12. complet Auto 017 0 ed 09:57 RDW RBC 09-16-2 46.9 fl 37.0-54 complet Auto 017 .0 ed 09:57 RDW RBC 04-2 13.6 % 11.3-14 complet 017 .5 ed Auto-Rt 09:57 o MCHC 09-16-2 35.3 32.0-36 complet RBC 017 g/dL .0 ed Auto-mC 09:57 nc MCH RBC 09-16-2 33.2 pg 27.0-31 complet Qn 017 .0 ed Auto 09:57 MCV RBC 09-16-2 94.2 fL 80.0-99 complet Auto 017 .0 ed 09:57 Hct VFr 09-16-2 35.7 % 34.5-44 complet Bld 017 .0 ed Auto 09:57 Hgb 09-16-2 12.6 11.5-15 complet Bld-mCn 017 g/dL .5 ed c 09:57 RBC # 04-2 3.79 3.89-5. complet Bld 017 10*6/mm 14 ed Auto 09:57 3 WBC 09-16-2 7.57 3.50-10 complet nRBC 017 10*3/mm .80 ed cor # 09:57 3 Bld UA Dipstick Pnl Ur (06-26-2016 19:42) Comment: Urine microscopic not indicated. Urobili 0.2 0.2 complet nogen 016 E.U./dL E.U./dL ed Ur Ql 19:42 , 1.0 Strip E.U./dL Nitrite [id number] Negativ complet Ur Ql 016 09 e ed Strip 19:42 Negativ e SCT Leukocy [id number] Negativ complet te 016 09 e ed esteras 19:42 Negativ e Ur Ql e SCT Strip.a uto Prot Ur [id number] Negativ complet Ql 016 09 e ed Strip 19:42 Negativ e SCT Hgb Ur [id number] Negativ complet Ql 016 09 e ed Strip.a 19:42 Negativ uto e SCT Bilirub [id number] Negativ complet Ur Ql 016 09 e ed Strip 19:42 Negativ e SCT Ketones [id number] Negativ complet Ur Ql 016 06 e ed Strip 19:42 Trace SCT Glucose 2 [id number] Negativ complet Ur 016 09 e ed Strip-m 19:42 Negativ Cnc e SCT Sp Gr 1.026 1.001-1 complet Ur 016 .030 ed Strip 19:42 pH Ur 2 5.5 5.0-8.0 complet Strip.a 016 ed uto 19:42 Clarity 06-26-2 [id number] Clear complet Ur 016 01 ed 19:42 Clear SCT Color 06-26-2 [id number] Yellow, complet Ur 016 09 Straw ed [...]
--- OUTSIDE RECORDS SUMMARY | 2017-07-31 07:41 | External Medical Summary Rpt | CCD ---
Author Author , TYRELL Organization TYRELL Address Unknown Phone [email or web address] Purpose Continuity of Care Document - 10-13-2011 [...] concent ration Urine culture (07-04-2017 14:50) Urine [id number] complet culture 017 07 ed 14:50 Escheri [...] be used for non-medical purposes such Bupreno [id number] Negativ complet rphine 017 09 e ed SerPl-m 03:22 Negativ Cnc e SCT Propoxy 9723115 Negativ complet ph Ur 017 09 e ed Ql 03:22 Negativ e SCT Oxycodo 8733250 Negativ complet ne Ur 017 09 e ed Ql Scn 03:22 Negativ e SCT Barbitu 5204377 Negativ complet rates 017 09 e ed Ur Ql 03:22 Negativ Scn e SCT Methado [id number] Negativ complet ne Ur 017 09 e ed Ql Scn 03:22 Negativ e SCT Tricycl 4591478 Negativ complet ics Ur 017 09 e ed Ql Scn 03:22 Negativ e SCT Benzodi 5254940 Negativ complet az Ur 017 09 e ed Ql Scn 03:22 Negativ e SCT Amphet+ 3466932 Negativ complet Methamp 017 09 e ed het Ur 03:22 Negativ Ql e SCT Opiates 8123405 Negativ complet Ur Ql 017 09 e ed 03:22 Negativ e SCT Ampheta 0787409 Negativ complet mines 017 09 e ed Ur Ql 03:22 Negativ e SCT Cocaine 7249989 Negativ complet Ur Ql 017 09 e ed 03:22 Negativ e SCT PCP Ur [id number] Negativ complet Ql Scn 017 09 e ed 03:22 Negativ e SCT Cannabi [id number] Negativ complet noids 017 09 e ed [...] Kleih Betke (11-04-2016 13:25) Hgb F 2 [id number] NO complet Bld Ql 017 00 Not [...] Ql 19:42 , 1.0 Strip E.U./dL Nitrite [id number] Negativ complet Ur Ql 016 09 e ed Strip 19:42 Negativ e SCT Leukocy 9414006 Negativ complet te 016 09 e ed esteras 19:42 Negativ e Ur Ql e SCT Strip.a uto Prot Ur [id number] Negativ complet Ql 016 09 e ed Strip 19:42 Negativ e SCT Hgb Ur [id number] Negativ complet Ql 016 09 e ed Strip.a 19:42 Negativ uto e SCT Bilirub [id number] Negativ complet Ur Ql 016 09 e ed Strip 19:42 Negativ e SCT Ketones 3407665 Negativ complet Ur Ql 016 06 e ed Strip 19:42 Trace SCT Glucose 2 7866942 Negativ complet Ur 016 09 e ed Strip-m 19:42 Negativ Cnc e SCT Sp Gr 1.026 1.001-1 complet Ur 016 .030 ed Strip 19:42 pH Ur 2 5.5 5.0-8.0 complet Strip.a 016 ed uto 19:42 Clarity 06-26-2 [id number] Clear complet Ur 016 01 ed 19:42 Clear SCT Color 06-26-2 [id number] Yellow, complet Ur 016 09 Straw ed [...]
--- OUTSIDE RECORDS SUMMARY | 2017-07-31 07:42 | External Medical Summary Rpt | CCD ---
Demographics Preferred Language Macedonian Marital Status Unknown Zoroastrian Affiliation Unknown Race Unknown Ethnic Group Unknown Author Author , TYRELL SANTILLAN Address Unknown Phone Immunization No patient found.
--- OUTSIDE RECORDS SUMMARY | 2017-07-31 07:42 | External Medical Summary Rpt | CCD ---
Author Author [employer] Organization [employer] Address Unknown Phone Unavailable Purpose Continuity of Care Document - through 2016
--- OUTSIDE RECORDS SUMMARY | 2017-07-31 07:42 | External Medical Summary Rpt ---
Author Author [facility], [employer] Organization [employer] Address Unknown Phone Unavailable Results Urinalysis macro (dipstick) panel in Urine Observa Value Referen Units Interpr Notes Date tion ce etation Range Appeara CLOUDY CLEAR No No No Jul 04 nce of informa informa informa 2017 Urine tion in tion in tion in 2:47 PM source source source data data data Bilirub NEGATIV NEG No No No Jul 04 in E informa informa informa 2016 [Presen tion in tion in tion in 2:47 PM ce] in source source source Urine data data data by Test strip Erythro LARGE NEG No No No Jul 04 cytes informa informa informa 2017 [Presen tion in tion in tion in 2:47 PM ce] in source source source Urine data data data Color YELLOW YELLOW No No No Jul 04 of informa informa informa 2017 Urine tion in tion in tion in 2:47 PM source source source data data data Glucose NEG No No No Jul 04 [Mass/vol informati informati informati 2017 2:47 ume] in on in on in on in PM Urine by source source source Test data data data strip Ketones NEGATIV NEG mg/dL No No Jul 04 E informa informa 2016 [Presen tion in tion in 2:47 PM ce] in source source Urine data data by Automat ed test strip pH of 5.0 - 8.5 No Normal No Jul 04 Urine informati informati 2017 2:47 on in on in PM source source data data Protein NEG mg/dL No No Jul 04 [Mass/vol informati informati 2016 2:47 ume] in on in on in PM Urine by source source Automated data data test strip Specific 1.005 - No Normal No Jul 04 gravity 1.030 informati informati 2017 2:47 of Urine on in on in PM source source data data Leukocy LARGE NEG No No No Jul 04 te informa informa informa 2017 esteras tion in tion in tion in 2:47 PM e source source source [Presen data data data ce] in Urine by Automat ed test strip Nitrite POSITIV NEG No Abnorma No Jul 04 E informa l informa 2016 [Presen tion in tion in 2:47 PM ce] in source source Urine data data by Test strip Urobili 0.2 NEG E.U./dL No No Jul 04 nogen informa informa 2016 [Presen tion in tion in 2:47 PM ce] in source source Urine data data by Test strip CHLAMYDIA AND GONORRHEA TESTING Observa Value Referen [...] MAY HAVE ADVERSE PSYCHO- SOCIAL IMPACT, [facility] \This report contain s [...] MAY HAVE ADVERSE PSYCHO- SOCIAL IMPACT, [facility].br \This report contain s [...] source AM data data data data KIT 06-30-1 No No No No Oct 13 EXPIRAT [...]
--- OUTSIDE RECORDS SUMMARY | 2017-07-31 07:42 | External Medical Summary Rpt | CCD ---
Demographics Preferred Language Niuean Marital Status Unknown Ep[employer]alian Affiliation Unknown Race Unknown Ethnic Group Unknown Author Author , [facility] SANTILLAN Address Unknown Phone Immunization No patient found.
--- OUTSIDE RECORDS SUMMARY | 2017-07-31 07:42 | External Medical Summary Rpt ---
[...] MAY HAVE ADVERSE PSYCHO- SOCIAL IMPACT, [facility] \This report contain s [...] MAY HAVE ADVERSE PSYCHO- SOCIAL IMPACT, [facility].\.br \This report contain s [...]
[2017-07-31] MEDS ORDERED: TESSALON PERLE100 MG PO (07:55)
[2017-07-31] MEDS ORDERED: ZITHROMAX Z PA250 MG PO (07:55)
[2017-07-31 08:05] VITALS: BP 118/82
== END 2017-07-31 08:06 | disposition home or self-care (01) ==
LOC: ER 06:51
PROVIDERS: Emergency Medicine
DX: N93.8 Other specified abnormal uterine and vaginal bleeding (principal); J20.9 Acute bronchitis, unspecified; R56.9 Unspecified convulsions